=== PATIENT | male | born 1970 | race Caucasian/White ===

== ENCOUNTER 2017-03-25 07:50 | Inpatient (IN) | payer OTHER ==
[~2017-03-25] VITALS: Ht 175.3 cm; Wt 107.0 kg
[2017-03-25] VITALS (11 sets, daily range): BP systolic 135–156; BP diastolic 57–67; PULSE 71–99; RESP 14–28; TEMP 99.6–101; O2SAT 97–100
[2017-03-25] MEDS ORDERED: fentaNYL DRIP 250 ML IV PRN (08:00)
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
[2017-03-25 08:28] LABS: AUTOMATED NEUTROPHIL # 7.2 TH/MM3 (1.8-7.7); BASOPHIL % 0.3 % (0.0-2.0); EOSINOPHIL % 0.2 % (0.0-4.0); HEMATOCRIT 36.9 % (39.0-51.0); HEMOGLOBIN 12.8 GM/DL (13.0-17.0); LYMPH % 12.3 % (9.0-44.0); LYMPHOCYTE # 1.1 TH/MM3 (1.0-4.8); MEAN CELL VOLUME 91.2 FL (80.0-100.0); MEAN CORPUSCULAR HEMOGLOBIN 31.8 PG (27.0-34.0); MEAN CORPUSCULAR HGB CONC 34.8 % (32.0-36.0); MEAN PLATELET VOLUME 7.5 FL (7.0-11.0); MONO % 5.6 % (0.0-8.0); MONOCYTE # 0.5 TH/MM3 (0-0.9); NEUT % 81.6 % (16.0-70.0); PLATELET COUNT 280 TH/MM3 (150-450); RED BLOOD COUNT 4.04 MIL/MM3 (4.50-5.90); RED CELL DISTRIBUTION WIDTH 13.1 % (11.6-17.2); WHITE BLOOD COUNT 8.8 TH/MM3 (4.0-11.0)
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
[2017-03-25 08:46] LABS: ALBUMIN 3.6 GM/DL (3.4-5.0); ALT (GPT) 27 U/L (12-78); AST (GOT) 18 U/L (15-37); BICARBONATE 21.1 MEQ/L (21.0-32.0); BLOOD UREA NITROGEN 18 MG/DL (7-18); CALCIUM 7.7 MG/DL (8.5-10.1); CHLORIDE 94 MEQ/L (98-107); CREATININE 1.03 MG/DL (0.60-1.30); GLOMERULAR FILTRATION RATE 77 ML/MIN (>89); GLUCOSE,RANDOM 316 MG/DL (74-106); SODIUM (NA) 131 MEQ/L (136-145)
[2017-03-25 08:48] LABS: ALKALINE PHOSPHATASE 133 U/L (45-117); TOTAL BILIRUBIN ADULT 0.3 MG/DL (0.2-1.0); TOTAL PROTEIN 6.6 GM/DL (6.4-8.2)
[2017-03-25] MEDS ORDERED: LISI10TA3 PO (09:03)
[2017-03-25] MEDS ORDERED: PLAV75TA29 PO (09:03)
[2017-03-25] MEDS ORDERED: METF1000 PO (09:03)
[2017-03-25] MEDS ORDERED: ATOR10TA15 PO (09:04)
[2017-03-25] MEDS ORDERED: SODIUM CHLOR 0.9% 250 ML INJ 250 ML IV ONE (09:15)
[2017-03-25] MEDS: PROPOFOL 1000 MG/100 ML INJ 100 ML IV PRN (09:45)
[2017-03-25] MEDS: fentaNYL DRIP 250 ML IV PRN ×2 (09:45→22:07)
[2017-03-25] MEDS ORDERED: POTASSIUM PHOSPHATE MONOBASIC 500 MG TAB PO/TUBE PRN (10:00)
[2017-03-25] MEDS ORDERED: ONDANSETRON HCL 4 MG/2 ML VIAL IV PUSH PRN (10:00)
[2017-03-25] MEDS ORDERED: CHLORHEXIDINE GLUCONATE 2 % 1 PACK (2 CLOTHS) TOP PRN (10:00)
[2017-03-25] MEDS ORDERED: POTASSIUM PHOSPHATE MONOBASIC 500 MG TAB PO PRN (10:00)
[2017-03-25] MEDS ORDERED: MAGNESIUM HYDROXIDE SUSP 30 ML CUP PO PRN (10:00)
[2017-03-25] MEDS ORDERED: POTASSIUM CHLOR 40 MEQ PREMIX 100 ML IV PRN (10:00)
[2017-03-25] MEDS ORDERED: MAGNESIUM OXIDE 400 MG TAB PO PRN (10:00)
[2017-03-25] MEDS ORDERED: POTASSIUM CHLOR 20 MEQ PREMIX 100 ML IV PRN (10:00)
[2017-03-25] MEDS ORDERED: MAGNESIUM SULFATE INJ 2 GM in SODIUM CHLORIDE 0.9% INJ 96 ML IV PRN (10:00)
[2017-03-25] MEDS: SODIUM CHLOR 0.9% 1000 ML INJ 1,000 ML IV SCH ×2 (10:00→22:08)
[2017-03-25] MEDS ORDERED: MAGNESIUM SULFATE INJ 4 GM in SODIUM CHLORIDE 0.9% INJ 92 ML IV PRN (10:00)
[2017-03-25] MEDS ORDERED: MISCELLANEOUS NURSING INFORMATION XX SCH (10:00)
[2017-03-25] MEDS ORDERED: POTASSIUM PHOSPHATE INJ 30 MMOL in SODIUM CHLOR 0.9% 250 ML INJ 250 ML IV PRN (10:00)
[2017-03-25] MEDS ORDERED: SODIUM PHOSPHATE INJ 30 MMOL in SODIUM CHLOR 0.9% 250 ML INJ 240 ML IV PRN (10:00)
[2017-03-25] MEDS ORDERED: POTASSIUM CHLORIDE 20 MEQ PWD PACKET PO PRN (10:00)
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
[2017-03-25] MEDS: levETIRAcetam INJ 500 MG in SODIUM CHLORIDE 0.9% INJ 100 ML IV SCH ×2 (11:00→20:41)
[2017-03-25] MEDS: PANTOPRAZOLE SODIUM 40 MG VIAL IVP SCH (11:00)
--- NOTE | 2017-03-25 11:52 | PD.OP ---
Operative Report Date of Surgery: Mar 25, 2017 Preoperative Diagnosis: Severe traumatic brain injury Postoperative Diagnosis: Same Procedure: Right frontal twist drill hole ventriculostomy placement Anesthesia: Local with sedation Surgeon: Tripp Ríos M.D. Color Paste Mixing Supervisor(s): None Operation and Findings: Following continuation of Diprivan and fentanyl drips with the oxygen saturation and hemodynamic monitoring in the intensive care unit, the right frontal region was shaved and the prep with chlor prep and sterilely draped. Using landmarks of 11 cm behind the nasion and 3 cm to the right of the midline , a 1 cm scalp incision was made after infiltrating with 1% lidocaine with epinephrine solution. With a handheld drill a twist drill hole was made in the underlying dura penetrated with a blunt probe. The bactiseal ventriculostomy catheter was then passed into the lateral ventricle at a depth of 7 cm blood- tinged CSF encountered with an opening pressure around 10 cm H20. The distal end of the ventriculostomy was then tunneled under the scalp with a trocar and secured to the exit site with a 3-0 nylon thigh and connected to a drainage bag. Scalp incision site was approximated with 3-0 nylon interrupted stitches A sterile dressing was applied. There were no complications and blood loss was less than 5 cc. Tripp Ríos MD Mar 25, 2017 11:52
[2017-03-25] MEDS: INSULIN NovoLIN REGULAR SUPPLEMENTAL SCALE SQ SCH ×3 (12:00→21:00)
[2017-03-25] MEDS: 3% SALINE INJ 500 ML IV SCH ×2 (12:14→22:08)
[2017-03-25] MEDS ORDERED: DEXTROSE 50% IN WATER 50 ML VIAL(D50) IV PUSH PRN (12:30)
[2017-03-25] MEDS ORDERED: GLUCAGON 1 MG/ML VIAL OTHER PRN (12:30)
[2017-03-25] MEDS ORDERED: 3% SALINE INJ 500 ML IV ONE (12:30)
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
[2017-03-25] MEDS ORDERED: AMPICILLIN-SULBACTAM INJ 3 GM VIAL IM SCH (14:00)
[2017-03-25] MEDS: AMPICILLIN/SULBAC 3 GM/NS 100 ML IV SCH ×4 (14:00→20:00)
--- NOTE | 2017-03-25 14:03 | RADRPT ---
EXAM DATE/TIME: 03/25/2017 13:32 [place] COMPARISON: CHEST SINGLE AP, March 25, 2017, 8:16. INDICATIONS : Status post left sided central line placement. MEDICAL HISTORY : None. SURGICAL HISTORY : None. ENCOUNTER: Subsequent ACUITY: 1 day PAIN SCORE: Non-responsive. LOCATION: chest FINDINGS: Single AP view of the chest. Endotracheal tube and nasogastric tube remain in place. Left subclavian central venous catheter is now in place with the tip at the mid SVC. Mild patchy lower lung zone opac ity bilaterally. The lungs are clear. Cardiomediastinal silhouette within normal limits. No evidence of pleural effusion or pneumothorax. CONCLUSION: Left subclavian central venous catheter tip at mid SVC. No evidence of pneumothorax. Mild patchy bilateral lower lung zone opacity likely representing atelectasis. Gorge Phillip MD on March 25, 2017 at 14:00 Board Certified Radiologist. This report was verified electronically.
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
[2017-03-25] MEDS: POTASSIUM CHLOR 20 MEQ PREMIX 100 ML IV PRN (14:09)
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
[2017-03-25 15:43] LABS: MAGNESIUM 1.4 MG/DL (1.5-2.5); PHOSPHORUS 4.5 MG/DL (2.5-4.9)
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
[2017-03-25] MEDS: CHLORHEXIDINE 0.12% (ORAL KIT) 15 ML CUP MT SCH (20:00)
[2017-03-25] MEDS: DOCUSATE SODIUM 100 MG/10 ML UDC PO SCH (20:41)
[2017-03-26] VITALS (19 sets, daily range): BP systolic 135–172; BP diastolic 61–75; PULSE 64–124; RESP 14–21; TEMP 98.8–101; O2SAT 97–100
[2017-03-26] MEDS: SODIUM CHLOR 0.9% 1000 ML INJ 1,000 ML IV SCH ×3 (00:14→21:38)
[2017-03-26] MEDS: AMPICILLIN/SULBAC 3 GM/NS 100 ML IV SCH ×8 (01:58→19:59)
[2017-03-26] MEDS: PROPOFOL 1000 MG/100 ML INJ 100 ML IV PRN ×2 (01:58→12:30)
[2017-03-26] MEDS: CHLORHEXIDINE GLUCONATE 2 % 1 PACK (2 CLOTHS) TOP SCH (01:58)
[2017-03-26 04:57] LABS: AUTOMATED NEUTROPHIL # 7.5 TH/MM3 (1.8-7.7); BASOPHIL % 0.1 % (0.0-2.0); HEMATOCRIT 29.9 % (39.0-51.0); HEMOGLOBIN 10.4 GM/DL (13.0-17.0); LYMPH % 4.3 % (9.0-44.0); LYMPHOCYTE # 0.4 TH/MM3 (1.0-4.8); MEAN CELL VOLUME 91.5 FL (80.0-100.0); MEAN CORPUSCULAR HEMOGLOBIN 31.8 PG (27.0-34.0); MEAN CORPUSCULAR HGB CONC 34.8 % (32.0-36.0); MEAN PLATELET VOLUME 7.9 FL (7.0-11.0); MONO % 5.8 % (0.0-8.0); MONOCYTE # 0.5 TH/MM3 (0-0.9); NEUT % 89.8 % (16.0-70.0); PLATELET COUNT 209 TH/MM3 (150-450); RED BLOOD COUNT 3.27 MIL/MM3 (4.50-5.90); RED CELL DISTRIBUTION WIDTH 13.2 % (11.6-17.2); SODIUM (NA) 137 MEQ/L (136-145); WHITE BLOOD COUNT 8.4 TH/MM3 (4.0-11.0)
--- NOTE | 2017-03-26 05:00 | RADRPT ---
EXAM DATE/TIME: 03/26/2017 04:10 [facility] COMPARISON: CT BRAIN W/O CONTRAST, March 25, 2017, 9:32. INDICATIONS : Follow up subarachnoid hemorrhage; post ventricular drain placement. RADIATION DOSE: 67.37 CTDIvol (mGy) ; Tabletop CT Head MEDICAL HISTORY : Non-responsive. SURGICAL HISTORY : Craniotomy. ENCOUNTER: Subsequent ACUITY: 1 day PAIN SCALE: Non-responsive LOCATION: cranial TECHNIQUE: Multiple contiguous axial images were obtained of the head. Using automated exposure control and adj ustment of the mA and/or kV according to patient size, radiation dose was kept as low as reasonably a chievable to obtain optimal diagnostic quality images. DICOM format image data is available electro nically for review and comparison. FINDINGS: CEREBRUM: There is a right ventriculostomy tube in place with the tip seen in the frontal horn the right latera l ventricle. There is a small focus of air within the frontal horn of the right lateral ventricle. Ag ain noted is subarachnoid hemorrhage seen over the frontal lobes. There is subdural hemorrhages seen in the frontal regions bilaterally. There is hemorrhage seen in the corpus callosum. Intraventricular hemorrhage is seen in the lateral ventricles. There is a epidural hemorrhage seen at the left occipi katie region potentially related to a venous injury in this location. There is parenchymal hemorrhage i s seen in the inferior frontal lobes bilaterally the more proximal right. There is surrounding edema seen in the inferior frontal lobes. All these areas of hemorrhage are unchanged. The basal cisterns a re open. POSTERIOR FOSSA: The cerebellum and brainstem are intact. The 4th ventricle is midline. The cerebellopontine angle i s unremarkable. EXTRACRANIAL: There is increased density in the left maxillary sinus and the sphenoid sinuses bilaterally. There is scattered air is of increased density within the mastoid and temporal air cells bilaterally more pro minent on the left. SKULL: There are basal skull fractures through the sphenoid bone and sphenoid sinus. A small amount of air s een in the anterior aspect of the left middle cranial fossa. There is fracture at the anterior aspect of the left Hola temporal bone. There is widening of the left lambdoid suture. CONCLUSION: 1. Persistent areas of hemorrhage at the frontal lobes bilaterally, intraventricular hemorrhage and a posterior left epidural hemorrhage which are unchanged from the prior exam. 2. New ventriculostomy tube in place in the frontal horn the right lateral ventricle. 3. Multiple fractures including a basal skull fracture through the sphenoid bone. Rj Rondon MD on March 26, 2017 at 4:48 Board Certified Radiologist. This report was verified electronically.
[2017-03-26 05:41] LABS: PROTHROMBIN TIME - PATIENT 10.4 SEC (9.8-11.6)
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
[2017-03-26 07:58] LABS: ALBUMIN 2.9 GM/DL (3.4-5.0); ALKALINE PHOSPHATASE 100 U/L (45-117); ALT (GPT) 20 U/L (12-78); AST (GOT) 14 U/L (15-37); BICARBONATE 27.3 MEQ/L (21.0-32.0); BLOOD UREA NITROGEN 14 MG/DL (7-18); CALCIUM 7.8 MG/DL (8.5-10.1); CHLORIDE 103 MEQ/L (98-107); CREATININE 0.63 MG/DL (0.60-1.30); GLOMERULAR FILTRATION RATE 137 ML/MIN (>89); GLUCOSE,RANDOM 241 MG/DL (74-106); TOTAL BILIRUBIN ADULT 0.5 MG/DL (0.2-1.0); TOTAL PROTEIN 6.2 GM/DL (6.4-8.2)
[2017-03-26] MEDS: CHLORHEXIDINE 0.12% (ORAL KIT) 15 ML CUP MT SCH ×2 (08:00→19:51)
[2017-03-26] MEDS: INSULIN NovoLIN REGULAR SUPPLEMENTAL SCALE SQ SCH ×4 (08:12→20:17)
[2017-03-26] MEDS: DOCUSATE SODIUM 100 MG/10 ML UDC PO SCH (08:13)
[2017-03-26] MEDS ORDERED: PNEUMOCOCCAL POLYVALENT INJ 25 MCG/0.5 ML SYR IM ONE (10:00)
[2017-03-26] MEDS ORDERED: INFLUENZA VIRUS VACCINE (QUADRIVALENT) 0.5 ML SYR IM ONE (10:00)
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
[2017-03-26] MEDS: PANTOPRAZOLE SODIUM 40 MG VIAL IVP SCH (10:56)
[2017-03-26] MEDS: levETIRAcetam INJ 500 MG in SODIUM CHLORIDE 0.9% INJ 100 ML IV SCH ×2 (10:56→19:59)
[2017-03-26] MEDS: hydrALAZINE HCL 20 MG/ML VIAL IV PUSH SCH ×3 (11:17→22:50)
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
[2017-03-26] MEDS: ENALAPRILAT 1.25 MG/ML VIAL IV PUSH PRN (11:54)
[2017-03-26] MEDS: cloNIDine HCL 0.1 MG/24 HR PATCH T-DERMAL SCH (12:00)
[2017-03-26] MEDS ORDERED: BISACODYL 10 MG SUPP RECTAL PRN (12:15)
--- NOTE | 2017-03-26 12:28 | EKG ---
Date Performed: 03/25/2017 Time Performed: 08:50:46 PTAGE: 46 years EKG: SINUS TACHYCARDIA INFERIOR MYOCARDIAL INFARCTION Clinical correlation is recommended ABNORM AL ECG NO PREVIOUS TRACING DOCTOR: Nigel Petit Interpretating Date/Time 03/26/2017 12:24:58
[2017-03-26] MEDS: fentaNYL DRIP 250 ML IV PRN (12:30)
[2017-03-26] MEDS: LACTULOSE SYRUP 20 GM/30 ML CUP PO SCH (13:00)
[2017-03-26] MEDS: 3% SALINE INJ 500 ML IV SCH (16:00)
[2017-03-26] MEDS: DOCUSATE SODIUM 50 MG/SENNA 8.6 MG TAB PO SCH (19:59)
[2017-03-27] VITALS (18 sets, daily range): BP systolic 123–166; BP diastolic 57–66; PULSE 87–108; RESP 17–20; TEMP 98.7–99.4; O2SAT 93–99
[2017-03-27] MEDS: ENALAPRILAT 1.25 MG/ML VIAL IV PUSH PRN (00:36)
[2017-03-27] MEDS: fentaNYL DRIP 250 ML IV PRN ×2 (00:39→12:53)
[2017-03-27] MEDS: PROPOFOL 1000 MG/100 ML INJ 100 ML IV PRN ×4 (00:43→18:15)
[2017-03-27] MEDS: CHLORHEXIDINE GLUCONATE 2 % 1 PACK (2 CLOTHS) TOP SCH (01:40)
[2017-03-27] MEDS: AMPICILLIN/SULBAC 3 GM/NS 100 ML IV SCH ×8 (02:08→20:37)
[2017-03-27] MEDS: 3% SALINE INJ 500 ML IV SCH ×2 (03:32→20:37)
[2017-03-27] MEDS: hydrALAZINE HCL 20 MG/ML VIAL IV PUSH SCH ×4 (05:23→23:59)
[2017-03-27 05:36] LABS: AUTOMATED NEUTROPHIL # 4.9 TH/MM3 (1.8-7.7); BASOPHIL % 0.1 % (0.0-2.0); EOSINOPHIL % 0.1 % (0.0-4.0); HEMATOCRIT 28.5 % (39.0-51.0); HEMOGLOBIN 9.9 GM/DL (13.0-17.0); LYMPH % 9.3 % (9.0-44.0); LYMPHOCYTE # 0.6 TH/MM3 (1.0-4.8); MEAN CELL VOLUME 91.4 FL (80.0-100.0); MEAN CORPUSCULAR HEMOGLOBIN 31.7 PG (27.0-34.0); MEAN CORPUSCULAR HGB CONC 34.7 % (32.0-36.0); MEAN PLATELET VOLUME 8.3 FL (7.0-11.0); MONO % 8.1 % (0.0-8.0); MONOCYTE # 0.5 TH/MM3 (0-0.9); NEUT % 82.4 % (16.0-70.0); PLATELET COUNT 184 TH/MM3 (150-450); RED BLOOD COUNT 3.12 MIL/MM3 (4.50-5.90); RED CELL DISTRIBUTION WIDTH 13.4 % (11.6-17.2)
[2017-03-27 05:44] LABS: PROTHROMBIN TIME - PATIENT 9.9 SEC (9.8-11.6)
[2017-03-27 05:56] LABS: CALCIUM 7.9 MG/DL (8.5-10.1); CREATININE 0.71 MG/DL (0.60-1.30)
[2017-03-27] MEDS: POTASSIUM CHLOR 40 MEQ PREMIX 100 ML IV PRN (07:08)
[2017-03-27] MEDS ORDERED: niCARdipine INJ 25 MG in SODIUM CHLOR 0.9% 250 ML INJ 240 ML IV PRN (08:00)
[2017-03-27] MEDS: INSULIN NovoLIN REGULAR SUPPLEMENTAL SCALE SQ SCH ×4 (08:00→20:38)
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
[2017-03-27] MEDS: DOCUSATE SODIUM 50 MG/SENNA 8.6 MG TAB PO SCH ×2 (09:32→20:37)
[2017-03-27] MEDS: CHLORHEXIDINE 0.12% (ORAL KIT) 15 ML CUP MT SCH ×2 (09:32→20:38)
[2017-03-27] MEDS: LACTULOSE SYRUP 20 GM/30 ML CUP PO SCH (09:32)
[2017-03-27] MEDS: PANTOPRAZOLE SODIUM 40 MG VIAL IVP SCH (10:48)
[2017-03-27] MEDS ORDERED: NICARDIPINE IV PRN (11:45)
[2017-03-27] MEDS ORDERED: SODIUM CHLORID 0.9% IV PRN (11:45)
[2017-03-27] MEDS: levETIRAcetam INJ 500 MG in SODIUM CHLORIDE 0.9% INJ 100 ML IV SCH ×2 (12:46→20:38)
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
[2017-03-27] MEDS: niCARdipine INJ 50 MG in SODIUM CHLORID 0.9% 500 ML INJ 480 ML IV PRN ×2 (17:05→21:08)
[2017-03-28] VITALS (18 sets, daily range): BP systolic 134–143; BP diastolic 52–65; PULSE 77–102; RESP 14–20; TEMP 98.5–99.8; O2SAT 95–100
[2017-03-28] MEDS: AMPICILLIN/SULBAC 3 GM/NS 100 ML IV SCH ×8 (01:25→21:04)
[2017-03-28] MEDS: fentaNYL DRIP 250 ML IV PRN (01:25)
[2017-03-28] MEDS: PROPOFOL 1000 MG/100 ML INJ 100 ML IV PRN ×3 (01:26→14:20)
[2017-03-28] MEDS: CHLORHEXIDINE GLUCONATE 2 % 1 PACK (2 CLOTHS) TOP SCH (02:44)
[2017-03-28 05:15] LABS: AUTOMATED NEUTROPHIL # 4.4 TH/MM3 (1.8-7.7); BASOPHIL % 0.4 % (0.0-2.0); EOSINOPHIL # 0.1 TH/MM3 (0-0.4); EOSINOPHIL % 1.4 % (0.0-4.0); HEMATOCRIT 30.2 % (39.0-51.0); HEMOGLOBIN 10.3 GM/DL (13.0-17.0); LYMPH % 7.2 % (9.0-44.0); LYMPHOCYTE # 0.4 TH/MM3 (1.0-4.8); MEAN CELL VOLUME 94.2 FL (80.0-100.0); MEAN CORPUSCULAR HEMOGLOBIN 32.1 PG (27.0-34.0); MONOCYTE # 0.3 TH/MM3 (0-0.9); PLATELET COUNT 197 TH/MM3 (150-450); RED BLOOD COUNT 3.21 MIL/MM3 (4.50-5.90); RED CELL DISTRIBUTION WIDTH 13.6 % (11.6-17.2); WHITE BLOOD COUNT 5.2 TH/MM3 (4.0-11.0)
[2017-03-28] MEDS: hydrALAZINE HCL 20 MG/ML VIAL IV PUSH SCH ×3 (05:31→17:41)
[2017-03-28 05:35] LABS: CALCIUM 7.9 MG/DL (8.5-10.1); CREATININE 0.68 MG/DL (0.60-1.30)
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
[2017-03-28] MEDS: LACTULOSE SYRUP 20 GM/30 ML CUP PO SCH (08:39)
[2017-03-28] MEDS: DOCUSATE SODIUM 50 MG/SENNA 8.6 MG TAB PO SCH ×2 (08:39→21:00)
[2017-03-28] MEDS: levETIRAcetam INJ 500 MG in SODIUM CHLORIDE 0.9% INJ 100 ML IV SCH ×2 (08:40→21:04)
[2017-03-28] MEDS: INSULIN NovoLIN REGULAR SUPPLEMENTAL SCALE SQ SCH ×3 (08:40→17:41)
[2017-03-28] MEDS: CHLORHEXIDINE 0.12% (ORAL KIT) 15 ML CUP MT SCH ×2 (08:40→21:05)
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
[2017-03-28] MEDS: ENALAPRILAT 1.25 MG/ML VIAL IV PUSH PRN (10:09)
--- NOTE | 2017-03-28 10:12 | MP ---
cc: SONG ECHOLS MD DATE OF SURGERY 03/25/2017 PREOPERATIVE DIAGNOSES Massive head trauma and brain hemorrhage. Respiratory failure. POSTOPERATIVE DIAGNOSES Massive head trauma and brain hemorrhage. Respiratory failure. PROCEDURE Triple-lumen placed in the left subclavian. SURGEON MD Candida ANESTHESIA 1% Xylocaine. ESTIMATED BLOOD LOSS Minimal. PROCEDURE The patient was prepped and draped in the usual fashion. The area was infiltrated with 1% Xylocaine, the needle inserted into the left subclavian vein. Through the needle the J-wire was guided, the J-wire dilated, triple-lumen placed, the triple lumen sutured in place with 2-0 silk and chest x-ray obtained. Song Echols SJ/SSB /3:42 PM /10:05 AM
[2017-03-28] MEDS: niCARdipine INJ 50 MG in SODIUM CHLORID 0.9% 500 ML INJ 480 ML IV PRN ×2 (10:55→17:41)
[2017-03-28] MEDS: PANTOPRAZOLE SODIUM 40 MG VIAL IVP SCH (11:01)
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
[2017-03-28] MEDS ORDERED: DEXTROSE 50% IN WATER 50 ML VIAL(D50) IV PUSH PRN (18:30)
[2017-03-28] MEDS ORDERED: GLUCAGON 1 MG/ML VIAL OTHER PRN (18:30)
[2017-03-28] MEDS ORDERED: PLEASE DISCONTINUE PREVIOUS SUPPLEMENTAL SCALE INSULIN ORDERS ONE (18:30)
[2017-03-28] MEDS: HIGH DOSE INSULIN NOVOLIN REGULAR SUPPLEMENTAL SCALE SQ SCH (19:56)
[2017-03-28 21:44] LABS: MAGNESIUM 2.5 MG/DL (1.5-2.5)
[2017-03-29] VITALS (19 sets, daily range): BP systolic 140–164; BP diastolic 52–65; PULSE 85–117; RESP 16–19; TEMP 98.7–99.9; O2SAT 94–97
[2017-03-29] MEDS: hydrALAZINE HCL 20 MG/ML VIAL IV PUSH SCH ×4 (01:41→17:20)
[2017-03-29] MEDS: AMPICILLIN/SULBAC 3 GM/NS 100 ML IV SCH ×8 (01:47→20:13)
[2017-03-29] MEDS: HIGH DOSE INSULIN NOVOLIN REGULAR SUPPLEMENTAL SCALE SQ SCH ×4 (01:47→17:20)
[2017-03-29] MEDS: CHLORHEXIDINE GLUCONATE 2 % 1 PACK (2 CLOTHS) TOP SCH (02:43)
[2017-03-29] MEDS: PROPOFOL 1000 MG/100 ML INJ 100 ML IV PRN ×2 (05:16)
[2017-03-29 06:27] LABS: AUTOMATED NEUTROPHIL # 4.9 TH/MM3 (1.8-7.7); BASOPHIL % 0.4 % (0.0-2.0); EOSINOPHIL # 0.2 TH/MM3 (0-0.4); EOSINOPHIL % 2.6 % (0.0-4.0); HEMATOCRIT 30.1 % (39.0-51.0); HEMOGLOBIN 10.3 GM/DL (13.0-17.0); LYMPH % 8.3 % (9.0-44.0); LYMPHOCYTE # 0.5 TH/MM3 (1.0-4.8); MEAN CELL VOLUME 95.2 FL (80.0-100.0); MEAN CORPUSCULAR HEMOGLOBIN 32.5 PG (27.0-34.0); MEAN CORPUSCULAR HGB CONC 34.2 % (32.0-36.0); MEAN PLATELET VOLUME 7.7 FL (7.0-11.0); MONOCYTE # 0.4 TH/MM3 (0-0.9); NEUT % 82.7 % (16.0-70.0); PLATELET COUNT 195 TH/MM3 (150-450); RED BLOOD COUNT 3.16 MIL/MM3 (4.50-5.90); RED CELL DISTRIBUTION WIDTH 13.7 % (11.6-17.2); WHITE BLOOD COUNT 5.9 TH/MM3 (4.0-11.0)
--- NOTE | 2017-03-29 06:33 | RADRPT ---
EXAM DATE/TIME: 03/29/2017 05:30 [facility] COMPARISON: CHEST SINGLE AP, March 26, 2017, 4:24. INDICATIONS : Shortness of breath. MEDICAL HISTORY : None. SURGICAL HISTORY : None. ENCOUNTER: Subsequent ACUITY: 3 days PAIN SCORE: Non-responsive. LOCATION: Bilateral chest FINDINGS: A single view of the chest demonstrates endotracheal tube in good position. Left central line in supe rior vena cava. Nasogastric tube enters stomach. Mild basilar airspace disease without significant ef fusion. No pneumothorax. Heart size enlarged. CONCLUSION: 1. Mild basilar airspace disease similar to March 26. No effusion or pneumothorax. Support apparatu s in good position. Magdy Shelley MD on March 29, 2017 at 6:28 Board Certified Radiologist. This report was verified electronically.
[2017-03-29 06:44] LABS: BICARBONATE 25.4 MEQ/L (21.0-32.0); CALCIUM 7.9 MG/DL (8.5-10.1); CREATININE 0.77 MG/DL (0.60-1.30)
[2017-03-29] MEDS: ENALAPRILAT 1.25 MG/ML VIAL IV PUSH PRN (07:40)
[2017-03-29] MEDS: CHLORHEXIDINE 0.12% (ORAL KIT) 15 ML CUP MT SCH ×2 (07:58→20:12)
[2017-03-29] MEDS: LACTULOSE SYRUP 20 GM/30 ML CUP PO SCH (07:58)
[2017-03-29] MEDS: DOCUSATE SODIUM 50 MG/SENNA 8.6 MG TAB PO SCH ×2 (07:58→20:12)
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
[2017-03-29] MEDS: levETIRAcetam INJ 500 MG in SODIUM CHLORIDE 0.9% INJ 100 ML IV SCH ×2 (08:37→20:13)
[2017-03-29] MEDS: niCARdipine INJ 50 MG in SODIUM CHLORID 0.9% 500 ML INJ 480 ML IV PRN ×3 (08:38→23:04)
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
[2017-03-29] MEDS: POTASSIUM CHLOR 40 MEQ PREMIX 100 ML IV PRN (09:52)
[2017-03-29] MEDS ORDERED: HALOPERIDOL LACTATE 5 MG/ML AMP IV PRN (10:30)
[2017-03-29] MEDS: PANTOPRAZOLE SODIUM 40 MG VIAL IVP SCH (10:30)
[2017-03-29] MEDS: METOPROLOL TARTRATE 5 MG/5 ML VIAL IV PUSH SCH ×3 (10:31→22:26)
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
[2017-03-29] MEDS: SODIUM CHLORIDE 0.9% FLUSH 10 ML FLUSH IV FLUSH PRN (22:26)
[2017-03-30] VITALS (18 sets, daily range): BP systolic 54–169; BP diastolic 52–65; PULSE 64–103; RESP 15–22; TEMP 98.8–99.6; O2SAT 93–98
[2017-03-30] MEDS: hydrALAZINE HCL 20 MG/ML VIAL IV PUSH SCH ×4 (00:58→17:34)
[2017-03-30] MEDS: HIGH DOSE INSULIN NOVOLIN REGULAR SUPPLEMENTAL SCALE SQ SCH ×4 (00:59→17:33)
[2017-03-30] MEDS: fentaNYL DRIP 250 ML IV PRN ×2 (01:59→23:40)
[2017-03-30] MEDS: AMPICILLIN/SULBAC 3 GM/NS 100 ML IV SCH ×8 (01:59→21:20)
[2017-03-30] MEDS: niCARdipine INJ 50 MG in SODIUM CHLORID 0.9% 500 ML INJ 480 ML IV PRN ×2 (03:09→07:31)
[2017-03-30] MEDS: CHLORHEXIDINE GLUCONATE 2 % 1 PACK (2 CLOTHS) TOP SCH (04:00)
[2017-03-30] MEDS: METOPROLOL TARTRATE 5 MG/5 ML VIAL IV PUSH SCH ×2 (04:55→09:15)
[2017-03-30 05:11] LABS: AUTOMATED NEUTROPHIL # 4.2 TH/MM3 (1.8-7.7); BASOPHIL % 0.3 % (0.0-2.0); EOSINOPHIL # 0.1 TH/MM3 (0-0.4); EOSINOPHIL % 2.7 % (0.0-4.0); HEMATOCRIT 31.2 % (39.0-51.0); HEMOGLOBIN 10.3 GM/DL (13.0-17.0); LYMPH % 12.9 % (9.0-44.0); LYMPHOCYTE # 0.7 TH/MM3 (1.0-4.8); MEAN CELL VOLUME 95.1 FL (80.0-100.0); MEAN CORPUSCULAR HEMOGLOBIN 31.5 PG (27.0-34.0); MEAN CORPUSCULAR HGB CONC 33.2 % (32.0-36.0); MEAN PLATELET VOLUME 7.8 FL (7.0-11.0); MONO % 6.5 % (0.0-8.0); MONOCYTE # 0.4 TH/MM3 (0-0.9); NEUT % 77.6 % (16.0-70.0); PLATELET COUNT 187 TH/MM3 (150-450); RED BLOOD COUNT 3.28 MIL/MM3 (4.50-5.90); WHITE BLOOD COUNT 5.5 TH/MM3 (4.0-11.0)
[2017-03-30 05:32] LABS: ALBUMIN 2.2 GM/DL (3.4-5.0); AST (GOT) 8 U/L (15-37); BICARBONATE 26.6 MEQ/L (21.0-32.0); BLOOD UREA NITROGEN 23 MG/DL (7-18); CALCIUM 8.6 MG/DL (8.5-10.1); CHLORIDE 120 MEQ/L (98-107); CREATININE 0.79 MG/DL (0.60-1.30); GLOMERULAR FILTRATION RATE 105 ML/MIN (>89); GLUCOSE,RANDOM 292 MG/DL (74-106); SODIUM (NA) 153 MEQ/L (136-145)
[2017-03-30 05:33] LABS: ALT (GPT) 13 U/L (12-78)
[2017-03-30 05:35] LABS: ALKALINE PHOSPHATASE 105 U/L (45-117); TOTAL BILIRUBIN ADULT 0.3 MG/DL (0.2-1.0)
--- NOTE | 2017-03-30 06:28 | RADRPT ---
EXAM DATE/TIME: 03/30/2017 05:19 [place] COMPARISON: CHEST SINGLE AP, March 29, 2017, 5:30. INDICATIONS : Shortness of breath MEDICAL HISTORY : None. SURGICAL HISTORY : None. ENCOUNTER: Subsequent ACUITY: 4 - 6 days PAIN SCORE: Non-responsive. LOCATION: Bilateral chest FINDINGS: A single view of the chest demonstrates endotracheal tube in good position. NG enters stomach. A cent ral line in superior vena cava. Bilateral mostly basilar airspace disease similar to March 29 and w orse on the right side. No pneumothorax. CONCLUSION: 1. Support apparatus unchanged. Bilateral airspace disease, right greater than left. Magdy Shelley MD on March 30, 2017 at 6:24 Board Certified Radiologist. This report was verified electronically.
[2017-03-30] MEDS: ENALAPRILAT 1.25 MG/ML VIAL IV PUSH PRN (07:07)
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
[2017-03-30] MEDS: levETIRAcetam INJ 500 MG in SODIUM CHLORIDE 0.9% INJ 100 ML IV SCH ×2 (08:52→21:21)
[2017-03-30] MEDS: DOCUSATE SODIUM 50 MG/SENNA 8.6 MG TAB PO SCH ×2 (08:53→21:21)
[2017-03-30] MEDS: LACTULOSE SYRUP 20 GM/30 ML CUP PO SCH (08:53)
[2017-03-30] MEDS: CHLORHEXIDINE 0.12% (ORAL KIT) 15 ML CUP MT SCH ×2 (08:54→20:00)
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
[2017-03-30] MEDS ORDERED: LABETALOL HCL 100 MG/20 ML VIAL IV PUSH ONE (09:15)
[2017-03-30] MEDS: INSULIN DETEMIR 100 UNITS/ML VIAL SQ SCH ×2 (10:00→21:20)
[2017-03-30] MEDS: PANTOPRAZOLE SODIUM 40 MG VIAL IVP SCH (10:52)
[2017-03-30] MEDS: FUROSEMIDE 20 MG/2 ML VIAL IV PUSH SCH (11:01)
[2017-03-30] MEDS: POTASSIUM CHLORIDE 25 MEQ EFFERVESCENT TAB NG SCH (11:02)
[2017-03-30] MEDS: LABETALOL INJ 500 MG in SODIUM CHLORIDE 0.9% INJ 150 ML IV PRN ×2 (11:02→15:49)
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
[2017-03-30] MEDS ORDERED: DEXTROSE 50% IN WATER 50 ML VIAL(D50) IV PUSH PRN (22:00)
[2017-03-30] MEDS ORDERED: GLUCAGON 1 MG/ML VIAL OTHER PRN (22:00)
[2017-03-31] VITALS (20 sets, daily range): BP systolic 122–169; BP diastolic 48–65; PULSE 55–68; RESP 14–22; TEMP 98.3–100.5; O2SAT 96–100
[2017-03-31] MEDS: hydrALAZINE HCL 20 MG/ML VIAL IV PUSH SCH ×4 (00:02→17:17)
[2017-03-31] MEDS: HIGH DOSE INSULIN NOVOLIN REGULAR SUPPLEMENTAL SCALE SQ SCH ×6 (00:27→20:00)
[2017-03-31] MEDS: AMPICILLIN/SULBAC 3 GM/NS 100 ML IV SCH ×8 (02:05→20:09)
[2017-03-31] MEDS: CHLORHEXIDINE GLUCONATE 2 % 1 PACK (2 CLOTHS) TOP SCH (03:48)
[2017-03-31 03:58] LABS: AUTOMATED NEUTROPHIL # 3.4 TH/MM3 (1.8-7.7); BASOPHIL % 0.5 % (0.0-2.0); EOSINOPHIL # 0.1 TH/MM3 (0-0.4); EOSINOPHIL % 2.9 % (0.0-4.0); HEMATOCRIT 28.6 % (39.0-51.0); HEMOGLOBIN 9.4 GM/DL (13.0-17.0); LYMPH % 18.4 % (9.0-44.0); LYMPHOCYTE # 0.9 TH/MM3 (1.0-4.8); MEAN CELL VOLUME 95.3 FL (80.0-100.0); MEAN CORPUSCULAR HEMOGLOBIN 31.5 PG (27.0-34.0); MONO % 7.2 % (0.0-8.0); MONOCYTE # 0.3 TH/MM3 (0-0.9); PLATELET COUNT 177 TH/MM3 (150-450); RED CELL DISTRIBUTION WIDTH 13.7 % (11.6-17.2); WHITE BLOOD COUNT 4.8 TH/MM3 (4.0-11.0)
[2017-03-31 04:22] LABS: ALBUMIN 2.1 GM/DL (3.4-5.0); AST (GOT) 8 U/L (15-37); BICARBONATE 27.4 MEQ/L (21.0-32.0); BLOOD UREA NITROGEN 31 MG/DL (7-18); CALCIUM 8.5 MG/DL (8.5-10.1); CHLORIDE 121 MEQ/L (98-107); CREATININE 0.89 MG/DL (0.60-1.30); GLOMERULAR FILTRATION RATE 92 ML/MIN (>89); GLUCOSE,RANDOM 281 MG/DL (74-106); SODIUM (NA) 155 MEQ/L (136-145)
[2017-03-31 04:23] LABS: ALT (GPT) 17 U/L (12-78)
[2017-03-31 04:25] LABS: ALKALINE PHOSPHATASE 97 U/L (45-117); TOTAL BILIRUBIN ADULT 0.2 MG/DL (0.2-1.0); TOTAL PROTEIN 5.8 GM/DL (6.4-8.2)
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
--- NOTE | 2017-03-31 05:11 | RADRPT ---
EXAM DATE/TIME: 03/31/2017 04:49 [facility] COMPARISON: CHEST SINGLE AP, March 30, 2017, 5:19. INDICATIONS : Respiratory disease. MEDICAL HISTORY : None. SURGICAL HISTORY : None. ENCOUNTER: Subsequent ACUITY: 1 week PAIN SCORE: Non-responsive. LOCATION: Bilateral chest FINDINGS: There is patchy airspace disease on the right, not significant changed. Endotracheal tube, enteric tu be and EKG leads are again noted. Degenerative changes of the spine are present. CONCLUSION: No significant change has occurred. Wing Mckeon MD on March 31, 2017 at 5:08 Board Certified Radiologist. This report was verified electronically.
[2017-03-31] MEDS: LABETALOL INJ 500 MG in SODIUM CHLORIDE 0.9% INJ 150 ML IV PRN (06:47)
[2017-03-31] MEDS: CHLORHEXIDINE 0.12% (ORAL KIT) 15 ML CUP MT SCH ×2 (08:00→20:00)
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
[2017-03-31] MEDS: LACTULOSE SYRUP 20 GM/30 ML CUP PO SCH (09:00)
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
[2017-03-31] MEDS: INSULIN DETEMIR 100 UNITS/ML VIAL SQ SCH ×2 (10:17→20:10)
[2017-03-31] MEDS: POTASSIUM CHLORIDE 25 MEQ EFFERVESCENT TAB NG SCH (10:17)
[2017-03-31] MEDS: PANTOPRAZOLE SODIUM 40 MG VIAL IVP SCH (10:19)
[2017-03-31] MEDS: levETIRAcetam INJ 500 MG in SODIUM CHLORIDE 0.9% INJ 100 ML IV SCH ×2 (10:20→20:10)
[2017-03-31] MEDS: FUROSEMIDE 20 MG/2 ML VIAL IV PUSH SCH (10:20)
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
[2017-03-31] MEDS: DOCUSATE SODIUM 50 MG/SENNA 8.6 MG TAB PO SCH ×2 (11:41→20:10)
[2017-03-31] MEDS ORDERED: LIDOCAINE 2%/EPINEPHrine 1:100,000 20ML MDV INFIL ONE (14:00)
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
[2017-03-31] MEDS: ENOXAPARIN SODIUM 40 MG/0.4 ML SYRINGE SQ SCH (17:17)
[2017-04-01] VITALS (15 sets, daily range): BP systolic 116–171; BP diastolic 52–72; PULSE 54–92; RESP 14–15; TEMP 98.4–100.6; O2SAT 94–100
[2017-04-01] MEDS: hydrALAZINE HCL 20 MG/ML VIAL IV PUSH SCH ×4 (00:45→17:58)
[2017-04-01] MEDS: AMPICILLIN/SULBAC 3 GM/NS 100 ML IV SCH ×8 (02:29→21:10)
[2017-04-01] MEDS: CHLORHEXIDINE GLUCONATE 2 % 1 PACK (2 CLOTHS) TOP SCH (04:00)
[2017-04-01] MEDS: HIGH DOSE INSULIN NOVOLIN REGULAR SUPPLEMENTAL SCALE SQ SCH ×6 (04:00→20:00)
[2017-04-01 04:42] LABS: AUTOMATED NEUTROPHIL # 3.1 TH/MM3 (1.8-7.7); EOSINOPHIL # 0.2 TH/MM3 (0-0.4); EOSINOPHIL % 4.2 % (0.0-4.0); HEMATOCRIT 28.5 % (39.0-51.0); HEMOGLOBIN 9.4 GM/DL (13.0-17.0); LYMPH % 24.5 % (9.0-44.0); LYMPHOCYTE # 1.2 TH/MM3 (1.0-4.8); MEAN CELL VOLUME 96.7 FL (80.0-100.0); MEAN CORPUSCULAR HEMOGLOBIN 31.9 PG (27.0-34.0); MEAN CORPUSCULAR HGB CONC 32.9 % (32.0-36.0); MEAN PLATELET VOLUME 8.5 FL (7.0-11.0); MONO % 7.4 % (0.0-8.0); MONOCYTE # 0.4 TH/MM3 (0-0.9); NEUT % 62.9 % (16.0-70.0); PLATELET COUNT 186 TH/MM3 (150-450); RED BLOOD COUNT 2.95 MIL/MM3 (4.50-5.90); RED CELL DISTRIBUTION WIDTH 13.8 % (11.6-17.2); WHITE BLOOD COUNT 4.9 TH/MM3 (4.0-11.0)
[2017-04-01 05:15] LABS: ALBUMIN 2.1 GM/DL (3.4-5.0); ALKALINE PHOSPHATASE 95 U/L (45-117); ALT (GPT) 18 U/L (12-78); AST (GOT) 10 U/L (15-37); BICARBONATE 28.6 MEQ/L (21.0-32.0); BLOOD UREA NITROGEN 35 MG/DL (7-18); CALCIUM 8.7 MG/DL (8.5-10.1); CHLORIDE 120 MEQ/L (98-107); CREATININE 0.95 MG/DL (0.60-1.30); GLOMERULAR FILTRATION RATE 85 ML/MIN (>89); GLUCOSE,RANDOM 284 MG/DL (74-106); TOTAL BILIRUBIN ADULT 0.2 MG/DL (0.2-1.0); TOTAL PROTEIN 5.7 GM/DL (6.4-8.2)
--- NOTE | 2017-04-01 05:16 | RADRPT ---
EXAM DATE/TIME: 04/01/2017 04:12 [facility] COMPARISON: CHEST SINGLE AP, March 31, 2017, 4:49. INDICATIONS : Respiratory disease. MEDICAL HISTORY : None. SURGICAL HISTORY : None. ENCOUNTER: Subsequent ACUITY: 1 week PAIN SCORE: Non-responsive. LOCATION: Bilateral chest FINDINGS: Cardiomegaly, endotracheal tube, enteric tube again noted. Improved aeration. A few scattered patchy parenchymal infiltrates remain bilaterally. CONCLUSION: Improved aeration. Wing Mckeon MD on April 01, 2017 at 5:13 Board Certified Radiologist. This report was verified electronically.
[2017-04-01 05:20] LABS: SODIUM (NA) 156 MEQ/L (136-145)
[2017-04-01] MEDS: RESP: ALBUTEROL 2.5 MG/IPRATROPIUM 0.5 MG NEB (PRN) NEB ×3 (06:47→21:09)
[2017-04-01] MEDS: CHLORHEXIDINE 0.12% (ORAL KIT) 15 ML CUP MT SCH ×2 (08:00→20:00)
[2017-04-01] MEDS: POTASSIUM CHLORIDE 25 MEQ EFFERVESCENT TAB NG SCH (09:00)
[2017-04-01] MEDS: FUROSEMIDE 20 MG/2 ML VIAL IV PUSH SCH (09:28)
[2017-04-01] MEDS: LACTULOSE SYRUP 20 GM/30 ML CUP PO SCH (09:28)
[2017-04-01] MEDS: levETIRAcetam INJ 500 MG in SODIUM CHLORIDE 0.9% INJ 100 ML IV SCH ×2 (09:29→21:09)
[2017-04-01] MEDS: LISINOPRIL 10 MG TAB PO SCH ×2 (09:30→21:09)
[2017-04-01] MEDS: DOCUSATE SODIUM 50 MG/SENNA 8.6 MG TAB PO SCH ×2 (09:31→21:09)
[2017-04-01] MEDS: PANTOPRAZOLE SODIUM 40 MG VIAL IVP SCH (09:38)
[2017-04-01] MEDS: FREE WATER G-TUBE SCH ×2 (10:20→17:58)
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
[2017-04-01] MEDS: ENOXAPARIN SODIUM 40 MG/0.4 ML SYRINGE SQ SCH (14:56)
[2017-04-01] MEDS: fentaNYL DRIP 250 ML IV PRN (14:56)
[2017-04-01] MEDS: INSULIN DETEMIR 100 UNITS/ML VIAL SQ SCH (21:08)
[2017-04-02] VITALS (18 sets, daily range): BP systolic 130–167; BP diastolic 62–79; PULSE 64–94; RESP 13–21; TEMP 98.8–99.6; O2SAT 96–100
[2017-04-02] MEDS: hydrALAZINE HCL 20 MG/ML VIAL IV PUSH SCH ×4 (00:29→16:47)
[2017-04-02] MEDS: AMPICILLIN/SULBAC 3 GM/NS 100 ML IV SCH ×8 (02:16→21:31)
[2017-04-02] MEDS: CHLORHEXIDINE GLUCONATE 2 % 1 PACK (2 CLOTHS) TOP SCH (04:00)
[2017-04-02] MEDS: HIGH DOSE INSULIN NOVOLIN REGULAR SUPPLEMENTAL SCALE SQ SCH ×6 (04:00→21:53)
[2017-04-02] MEDS: RESP: ALBUTEROL 2.5 MG/IPRATROPIUM 0.5 MG NEB (PRN) NEB ×3 (04:18→17:22)
[2017-04-02 04:30] LABS: AUTOMATED NEUTROPHIL # 4.6 TH/MM3 (1.8-7.7); BASOPHIL % 0.6 % (0.0-2.0); EOSINOPHIL # 0.2 TH/MM3 (0-0.4); EOSINOPHIL % 3.2 % (0.0-4.0); HEMATOCRIT 30.4 % (39.0-51.0); LYMPH % 16.8 % (9.0-44.0); LYMPHOCYTE # 1.1 TH/MM3 (1.0-4.8); MEAN CELL VOLUME 96.2 FL (80.0-100.0); MEAN CORPUSCULAR HEMOGLOBIN 31.5 PG (27.0-34.0); MEAN CORPUSCULAR HGB CONC 32.8 % (32.0-36.0); MEAN PLATELET VOLUME 8.3 FL (7.0-11.0); MONOCYTE # 0.4 TH/MM3 (0-0.9); NEUT % 72.4 % (16.0-70.0); PLATELET COUNT 209 TH/MM3 (150-450); RED BLOOD COUNT 3.16 MIL/MM3 (4.50-5.90); RED CELL DISTRIBUTION WIDTH 13.5 % (11.6-17.2); WHITE BLOOD COUNT 6.3 TH/MM3 (4.0-11.0)
[2017-04-02 04:40] LABS: ALBUMIN 2.3 GM/DL (3.4-5.0); AST (GOT) 17 U/L (15-37); BICARBONATE 28.7 MEQ/L (21.0-32.0); BLOOD UREA NITROGEN 32 MG/DL (7-18); CALCIUM 8.6 MG/DL (8.5-10.1); CHLORIDE 117 MEQ/L (98-107); CREATININE 0.84 MG/DL (0.60-1.30); GLOMERULAR FILTRATION RATE 98 ML/MIN (>89); GLUCOSE,RANDOM 245 MG/DL (74-106); SODIUM (NA) 153 MEQ/L (136-145)
[2017-04-02 04:41] LABS: ALT (GPT) 20 U/L (12-78)
[2017-04-02 04:43] LABS: ALKALINE PHOSPHATASE 99 U/L (45-117); TOTAL BILIRUBIN ADULT 0.3 MG/DL (0.2-1.0); TOTAL PROTEIN 6.2 GM/DL (6.4-8.2)
--- NOTE | 2017-04-02 04:49 | RADRPT ---
EXAM DATE/TIME: 04/02/2017 04:34 [facility] COMPARISON: CT BRAIN W/O CONTRAST, March 31, 2017, 4:28. INDICATIONS : Follow up traumatic brain injury. RADIATION DOSE: 69.15 CTDIvol (mGy) MEDICAL HISTORY : Non-responsive. SURGICAL HISTORY : Non-responsive. ENCOUNTER: Subsequent ACUITY: 1 week PAIN SCALE: Non-responsive LOCATION: cranial TECHNIQUE: Multiple contiguous axial images were obtained of the head. Using automated exposure control and adj ustment of the mA and/or kV according to patient size, radiation dose was kept as low as reasonably a chievable to obtain optimal diagnostic quality images. DICOM format image data is available electro nically for review and comparison. FINDINGS: Bilateral mastoid opacification, sphenoid, ethmoid and left maxillary sinus opacification end skull b ase fracture is again seen. There is an extra-axial hematoma along the left occipital convexity, not significant changed. Hemorrhage in the posterior horns of the lateral ventricles again seen. Callosal hemorrhage is stable. There is hemorrhage in the interhemispheric fissure which is also unchanged. S ubarachnoid hemorrhage in the bilateral frontal regions is stable as well as bilateral frontal hemorr hagic contusions right greater than left as well as bilateral frontal subdural hemorrhage, unchanged. Cavum septum pellucidum is noted. The right frontal approach ventriculostomy catheter has been remov ed since previous study. There is slight decrease in ventriculomegaly. CONCLUSION: Slight decrease in ventriculomegaly otherwise stable appearance of the brain with intracranial, intra parenchymal and extra-axial hemorrhage noted. Wing Mckeon MD on April 02, 2017 at 4:45 Board Certified Radiologist. This report was verified electronically.
--- NOTE | 2017-04-02 05:43 | RADRPT ---
EXAM DATE/TIME: 04/02/2017 04:18 [facility] COMPARISON: CHEST SINGLE AP, April 01, 2017, 4:12. INDICATIONS : Respiratory disease. MEDICAL HISTORY : None. SURGICAL HISTORY : None. ENCOUNTER: Initial ACUITY: 1 week PAIN SCORE: Non-responsive. LOCATION: Bilateral chest FINDINGS: Endotracheal tube tip at the superior margin the clavicles. Enteric tube tip terminates at the mid es ophageal region. Left subclavian line tip overlies the SVC. Patchy infiltrates are unchanged. Cardiac and aortic. CONCLUSION: Stable appearance of the lungs however NG tube needs to be repositioned. Wing Mckeon MD on April 02, 2017 at 5:41 Board Certified Radiologist. This report was verified electronically.
[2017-04-02] MEDS: FREE WATER G-TUBE SCH ×4 (05:50→16:47)
[2017-04-02] MEDS: CHLORHEXIDINE 0.12% (ORAL KIT) 15 ML CUP MT SCH ×2 (08:00→21:31)
[2017-04-02] MEDS: levETIRAcetam INJ 500 MG in SODIUM CHLORIDE 0.9% INJ 100 ML IV SCH ×2 (08:48→21:54)
[2017-04-02] MEDS: LISINOPRIL 10 MG TAB PO SCH ×2 (08:49→21:31)
[2017-04-02] MEDS: POTASSIUM CHLORIDE 25 MEQ EFFERVESCENT TAB NG SCH (08:49)
[2017-04-02] MEDS: INSULIN DETEMIR 100 UNITS/ML VIAL SQ SCH ×2 (08:49→21:31)
[2017-04-02] MEDS: DOCUSATE SODIUM 50 MG/SENNA 8.6 MG TAB PO SCH ×2 (08:49→21:30)
[2017-04-02] MEDS: MAGNESIUM HYDROXIDE SUSP 30 ML CUP PO SCH ×2 (08:49→21:31)
[2017-04-02] MEDS: FUROSEMIDE 20 MG/2 ML VIAL IV PUSH SCH (08:49)
[2017-04-02] MEDS: LACTULOSE SYRUP 20 GM/30 ML CUP PO SCH (08:49)
[2017-04-02] MEDS: REMOVE OLD PATCH T-DERMAL SCH (08:50)
[2017-04-02] MEDS: cloNIDine HCL 0.1 MG/24 HR PATCH T-DERMAL SCH (08:50)
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
[2017-04-02] MEDS: PANTOPRAZOLE SODIUM 40 MG VIAL IVP SCH (11:45)
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
[2017-04-02] MEDS: ENOXAPARIN SODIUM 40 MG/0.4 ML SYRINGE SQ SCH (15:03)
[2017-04-02] MEDS: RESP: ALBUTEROL 2.5 MG/IPRATROPIUM 0.5 MG NEB (SCH) NEB (20:39)
[2017-04-02] MEDS: RESP: ACETYLCYSTEINE 20% 4 ML NEB NEB SCH (21:00)
[2017-04-03] VITALS (18 sets, daily range): BP systolic 118–146; BP diastolic 59–98; PULSE 87–101; RESP 14–23; TEMP 99.3–100.5; O2SAT 96–100
[2017-04-03] MEDS: FREE WATER G-TUBE SCH ×4 (00:14→17:43)
[2017-04-03] MEDS: hydrALAZINE HCL 20 MG/ML VIAL IV PUSH SCH ×4 (00:14→17:42)
[2017-04-03] MEDS: HIGH DOSE INSULIN NOVOLIN REGULAR SUPPLEMENTAL SCALE SQ SCH ×6 (00:15→20:53)
[2017-04-03] MEDS: AMPICILLIN/SULBAC 3 GM/NS 100 ML IV SCH ×4 (01:41→08:30)
[2017-04-03] MEDS: CHLORHEXIDINE GLUCONATE 2 % 1 PACK (2 CLOTHS) TOP SCH (03:31)
[2017-04-03] MEDS: RESP: ALBUTEROL 2.5 MG/IPRATROPIUM 0.5 MG NEB (SCH) NEB ×4 (03:39→22:00)
[2017-04-03] MEDS: RESP: ACETYLCYSTEINE 20% 4 ML NEB NEB SCH ×4 (03:39→22:00)
[2017-04-03 04:46] LABS: AUTOMATED NEUTROPHIL # 5.8 TH/MM3 (1.8-7.7); BASOPHIL % 0.3 % (0.0-2.0); EOSINOPHIL # 0.1 TH/MM3 (0-0.4); EOSINOPHIL % 1.9 % (0.0-4.0); HEMOGLOBIN 10.3 GM/DL (13.0-17.0); LYMPH % 17.4 % (9.0-44.0); LYMPHOCYTE # 1.4 TH/MM3 (1.0-4.8); MEAN CELL VOLUME 94.4 FL (80.0-100.0); MEAN CORPUSCULAR HEMOGLOBIN 32.3 PG (27.0-34.0); MEAN CORPUSCULAR HGB CONC 34.2 % (32.0-36.0); MEAN PLATELET VOLUME 8.8 FL (7.0-11.0); MONO % 5.9 % (0.0-8.0); MONOCYTE # 0.5 TH/MM3 (0-0.9); NEUT % 74.5 % (16.0-70.0); PLATELET COUNT 239 TH/MM3 (150-450); RED BLOOD COUNT 3.17 MIL/MM3 (4.50-5.90); RED CELL DISTRIBUTION WIDTH 13.5 % (11.6-17.2); WHITE BLOOD COUNT 7.8 TH/MM3 (4.0-11.0)
--- NOTE | 2017-04-03 05:05 | RADRPT ---
EXAM DATE/TIME: 04/03/2017 04:24 [facility] COMPARISON: CHEST SINGLE AP, April 02, 2017, 4:18. INDICATIONS : Short of breath. MEDICAL HISTORY : None. SURGICAL HISTORY : None. ENCOUNTER: Subsequent ACUITY: 1 week PAIN SCORE: 0/10 LOCATION: Bilateral chest FINDINGS: Portable AP view of the chest demonstrates a normal-sized cardiac silhouette. ETT and nasogastric tub e are present. Nasogastric tube distal tip is in the gastric body. Multiple EKG lines overlie the pat ient. Lungs are underinflated with atelectasis at the bases. No pleural effusion or pneumothorax is i dentified. The bones and soft tissues demonstrate no acute finding. CONCLUSION: No acute cardiopulmonary abnormality is identified. There is atelectasis at the lung bases. Rj Bowman MD on April 03, 2017 at 5:03 Board Certified Radiologist. This report was verified electronically.
[2017-04-03 05:08] LABS: ALBUMIN 2.3 GM/DL (3.4-5.0); AST (GOT) 27 U/L (15-37); BICARBONATE 28.5 MEQ/L (21.0-32.0); BLOOD UREA NITROGEN 28 MG/DL (7-18); CALCIUM 8.6 MG/DL (8.5-10.1); CHLORIDE 113 MEQ/L (98-107); CREATININE 0.84 MG/DL (0.60-1.30); GLOMERULAR FILTRATION RATE 98 ML/MIN (>89); GLUCOSE,RANDOM 197 MG/DL (74-106); SODIUM (NA) 148 MEQ/L (136-145)
[2017-04-03 05:12] LABS: ALKALINE PHOSPHATASE 106 U/L (45-117); ALT (GPT) 22 U/L (12-78); TOTAL BILIRUBIN ADULT 0.3 MG/DL (0.2-1.0); TOTAL PROTEIN 6.2 GM/DL (6.4-8.2)
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
[2017-04-03] MEDS: CHLORHEXIDINE 0.12% (ORAL KIT) 15 ML CUP MT SCH ×2 (08:00→20:53)
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
[2017-04-03] MEDS ORDERED: MAGNESIUM CITRATE SOLN 300 ML BTL PO ONE (08:30)
[2017-04-03] MEDS: LACTULOSE SYRUP 20 GM/30 ML CUP PO SCH (08:30)
[2017-04-03] MEDS: levETIRAcetam INJ 500 MG in SODIUM CHLORIDE 0.9% INJ 100 ML IV SCH ×2 (08:30→20:53)
[2017-04-03] MEDS: MAGNESIUM HYDROXIDE SUSP 30 ML CUP PO SCH ×2 (08:31→20:54)
[2017-04-03] MEDS: DOCUSATE SODIUM 50 MG/SENNA 8.6 MG TAB PO SCH ×2 (08:31→20:54)
[2017-04-03] MEDS: LISINOPRIL 10 MG TAB PO SCH ×2 (08:31→20:54)
[2017-04-03] MEDS: INSULIN DETEMIR 100 UNITS/ML VIAL SQ SCH ×2 (09:00→20:54)
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
[2017-04-03] MEDS ORDERED: AMANTADINE HCL 100 MG CAP PO ONE (09:30)
[2017-04-03] MEDS: PANTOPRAZOLE SODIUM 40 MG VIAL IVP SCH (11:42)
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
[2017-04-03] MEDS: ENOXAPARIN SODIUM 40 MG/0.4 ML SYRINGE SQ SCH (14:14)
[2017-04-04] VITALS (18 sets, daily range): BP systolic 108–152; BP diastolic 52–70; PULSE 89–111; RESP 16–25; TEMP 99–100.1; O2SAT 95–99
[2017-04-04] MEDS: hydrALAZINE HCL 20 MG/ML VIAL IV PUSH SCH ×4 (00:26→17:58)
[2017-04-04] MEDS: HIGH DOSE INSULIN NOVOLIN REGULAR SUPPLEMENTAL SCALE SQ SCH ×6 (00:27→21:48)
[2017-04-04] MEDS: CHLORHEXIDINE GLUCONATE 2 % 1 PACK (2 CLOTHS) TOP SCH (04:00)
[2017-04-04] MEDS: RESP: ALBUTEROL 2.5 MG/IPRATROPIUM 0.5 MG NEB (SCH) NEB ×4 (04:00→21:49)
[2017-04-04] MEDS: RESP: ACETYLCYSTEINE 20% 4 ML NEB NEB SCH ×4 (04:00→21:49)
--- NOTE | 2017-04-04 05:16 | RADRPT ---
EXAM DATE/TIME: 04/04/2017 04:19 [place] COMPARISON: CHEST SINGLE AP, April 03, 2017, 4:24. INDICATIONS : Short of breath, respiratory disease. MEDICAL HISTORY : None. SURGICAL HISTORY : None. ENCOUNTER: Subsequent ACUITY: 1 week PAIN SCORE: 0/10 LOCATION: Bilateral chest FINDINGS: Rotated and underinflated AP view of the chest demonstrates a normal-sized cardiac silhouette. ETT an d nasogastric tube remain present. EKG lines overlie the patient. There is atelectasis at the lung ba ses. No pleural effusion or pneumothorax is identified. CONCLUSION: Underinflated examination with atelectasis at the lung bases. No other acute finding is identified. Rj Bowman MD on April 04, 2017 at 5:14 Board Certified Radiologist. This report was verified electronically.
[2017-04-04] MEDS: FREE WATER G-TUBE SCH ×4 (05:27→17:58)
[2017-04-04 05:39] LABS: AUTOMATED NEUTROPHIL # 5.1 TH/MM3 (1.8-7.7); BASOPHIL % 0.6 % (0.0-2.0); EOSINOPHIL # 0.2 TH/MM3 (0-0.4); EOSINOPHIL % 2.4 % (0.0-4.0); HEMATOCRIT 31.9 % (39.0-51.0); HEMOGLOBIN 10.6 GM/DL (13.0-17.0); LYMPH % 19.4 % (9.0-44.0); LYMPHOCYTE # 1.4 TH/MM3 (1.0-4.8); MEAN CELL VOLUME 94.2 FL (80.0-100.0); MEAN CORPUSCULAR HEMOGLOBIN 31.2 PG (27.0-34.0); MEAN CORPUSCULAR HGB CONC 33.1 % (32.0-36.0); MEAN PLATELET VOLUME 9.2 FL (7.0-11.0); MONO % 5.5 % (0.0-8.0); MONOCYTE # 0.4 TH/MM3 (0-0.9); NEUT % 72.1 % (16.0-70.0); PLATELET COUNT 275 TH/MM3 (150-450); RED BLOOD COUNT 3.38 MIL/MM3 (4.50-5.90); RED CELL DISTRIBUTION WIDTH 13.1 % (11.6-17.2); WHITE BLOOD COUNT 7.1 TH/MM3 (4.0-11.0)
[2017-04-04 05:53] LABS: ALBUMIN 2.5 GM/DL (3.4-5.0); ALT (GPT) 26 U/L (12-78); AST (GOT) 27 U/L (15-37); BICARBONATE 28.4 MEQ/L (21.0-32.0); BLOOD UREA NITROGEN 27 MG/DL (7-18); CALCIUM 8.4 MG/DL (8.5-10.1); CHLORIDE 113 MEQ/L (98-107); CREATININE 0.81 MG/DL (0.60-1.30); GLOMERULAR FILTRATION RATE 102 ML/MIN (>89); GLUCOSE,RANDOM 151 MG/DL (74-106); SODIUM (NA) 148 MEQ/L (136-145)
[2017-04-04 05:56] LABS: ALKALINE PHOSPHATASE 107 U/L (45-117); TOTAL BILIRUBIN ADULT 0.3 MG/DL (0.2-1.0); TOTAL PROTEIN 6.6 GM/DL (6.4-8.2)
[2017-04-04] MEDS ORDERED: AMANTADINE HCL 100 MG CAP PO SCH (07:00)
[2017-04-04] MEDS: LISINOPRIL 10 MG TAB PO SCH ×2 (08:05→21:00)
[2017-04-04] MEDS: MAGNESIUM HYDROXIDE SUSP 30 ML CUP PO SCH ×2 (08:06→20:45)
[2017-04-04] MEDS: LACTULOSE SYRUP 20 GM/30 ML CUP PO SCH (08:06)
[2017-04-04] MEDS: DOCUSATE SODIUM 50 MG/SENNA 8.6 MG TAB PO SCH ×2 (08:06→20:46)
[2017-04-04] MEDS: CHLORHEXIDINE 0.12% (ORAL KIT) 15 ML CUP MT SCH ×2 (08:06→21:49)
[2017-04-04] MEDS: INSULIN DETEMIR 100 UNITS/ML VIAL SQ SCH ×2 (09:00→21:48)
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
[2017-04-04] MEDS: PANTOPRAZOLE SODIUM 40 MG VIAL IVP SCH (11:03)
[2017-04-04] MEDS: AMANTADINE HCL 100 MG CAP PO SCH (11:04)
[2017-04-04] MEDS: ENOXAPARIN SODIUM 40 MG/0.4 ML SYRINGE SQ SCH (13:48)
[2017-04-04] MEDS: ACETAMINOPHEN 325 MG TAB PO PRN (13:48)
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
[2017-04-05] VITALS (18 sets, daily range): BP systolic 108–136; BP diastolic 57–64; PULSE 96–108; RESP 14–19; TEMP 98.4–102.7; O2SAT 93–100
[2017-04-05] MEDS: HIGH DOSE INSULIN NOVOLIN REGULAR SUPPLEMENTAL SCALE SQ SCH ×7 (00:33→23:51)
[2017-04-05] MEDS: RESP: ACETYLCYSTEINE 20% 4 ML NEB NEB SCH ×4 (04:00→22:36)
[2017-04-05] MEDS: CHLORHEXIDINE GLUCONATE 2 % 1 PACK (2 CLOTHS) TOP SCH (04:00)
[2017-04-05] MEDS: RESP: ALBUTEROL 2.5 MG/IPRATROPIUM 0.5 MG NEB (SCH) NEB ×4 (04:00→22:45)
[2017-04-05 05:30] LABS: AUTOMATED NEUTROPHIL # 6.7 TH/MM3 (1.8-7.7); BASOPHIL # 0.1 TH/MM3 (0-0.2); BASOPHIL % 0.6 % (0.0-2.0); EOSINOPHIL # 0.2 TH/MM3 (0-0.4); EOSINOPHIL % 2.1 % (0.0-4.0); HEMATOCRIT 31.4 % (39.0-51.0); HEMOGLOBIN 10.3 GM/DL (13.0-17.0); LYMPH % 12.7 % (9.0-44.0); LYMPHOCYTE # 1.1 TH/MM3 (1.0-4.8); MEAN CORPUSCULAR HEMOGLOBIN 31.3 PG (27.0-34.0); MEAN CORPUSCULAR HGB CONC 32.9 % (32.0-36.0); MEAN PLATELET VOLUME 9.5 FL (7.0-11.0); MONO % 5.3 % (0.0-8.0); MONOCYTE # 0.4 TH/MM3 (0-0.9); NEUT % 79.3 % (16.0-70.0); PLATELET COUNT 295 TH/MM3 (150-450); RED BLOOD COUNT 3.31 MIL/MM3 (4.50-5.90); WHITE BLOOD COUNT 8.5 TH/MM3 (4.0-11.0)
[2017-04-05 05:53] LABS: ALBUMIN 2.4 GM/DL (3.4-5.0); AST (GOT) 15 U/L (15-37); BICARBONATE 25.9 MEQ/L (21.0-32.0); BLOOD UREA NITROGEN 33 MG/DL (7-18); CALCIUM 9.1 MG/DL (8.5-10.1); CHLORIDE 111 MEQ/L (98-107); CREATININE 0.95 MG/DL (0.60-1.30); GLOMERULAR FILTRATION RATE 85 ML/MIN (>89); GLUCOSE,RANDOM 206 MG/DL (74-106); SODIUM (NA) 145 MEQ/L (136-145)
[2017-04-05 05:57] LABS: ALKALINE PHOSPHATASE 105 U/L (45-117); ALT (GPT) 24 U/L (12-78); TOTAL BILIRUBIN ADULT 0.4 MG/DL (0.2-1.0); TOTAL PROTEIN 6.7 GM/DL (6.4-8.2)
[2017-04-05] MEDS: FREE WATER G-TUBE SCH ×5 (06:00→23:50)
[2017-04-05] MEDS: hydrALAZINE HCL 20 MG/ML VIAL IV PUSH SCH ×5 (06:00→23:50)
--- NOTE | 2017-04-05 06:10 | RADRPT ---
EXAM DATE/TIME: 04/05/2017 04:59 [facility] COMPARISON: CHEST SINGLE AP, April 04, 2017, 4:19. INDICATIONS : Shortness of breath. MEDICAL HISTORY : Non-responsive. SURGICAL HISTORY : Non-responsive. ENCOUNTER: Subsequent ACUITY: 1 week PAIN SCORE: Non-responsive. LOCATION: Bilateral chest FINDINGS: Portable AP view of the chest demonstrates a normal-sized cardiac silhouette. ETT and nasogastric tub e are present. Lungs are underinflated with atelectasis at the lung bases. No effusion or pneumothora x is identified. Bones demonstrate no acute finding. CONCLUSION: Underinflated examination with atelectasis at the lung bases. Otherwise, no acute finding is identifi ed. Rj Bowman MD on April 05, 2017 at 6:08 Board Certified Radiologist. This report was verified electronically.
[2017-04-05] MEDS: AMANTADINE HCL 100 MG CAP PO SCH ×2 (06:11→12:56)
[2017-04-05] MEDS: CHLORHEXIDINE 0.12% (ORAL KIT) 15 ML CUP MT SCH ×2 (08:00→20:00)
[2017-04-05] MEDS: INSULIN DETEMIR 100 UNITS/ML VIAL SQ SCH ×2 (08:20→21:25)
[2017-04-05] MEDS: FAMOTIDINE 20 MG TAB PO SCH ×2 (08:20→21:25)
[2017-04-05] MEDS: LISINOPRIL 10 MG TAB PO SCH ×2 (08:20→21:25)
[2017-04-05] MEDS: MAGNESIUM HYDROXIDE SUSP 30 ML CUP PO SCH ×2 (09:00→21:25)
[2017-04-05] MEDS: DOCUSATE SODIUM 50 MG/SENNA 8.6 MG TAB PO SCH ×2 (09:00→21:25)
[2017-04-05] MEDS: LACTULOSE SYRUP 20 GM/30 ML CUP PO SCH (09:00)
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
[2017-04-05] MEDS: HYOSCYAMINE 0.125 MG TAB PO PRN (12:56)
[2017-04-05] MEDS: ACETAMINOPHEN 325 MG TAB PO PRN (13:12)
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
[2017-04-06] VITALS (17 sets, daily range): BP systolic 113–134; BP diastolic 59–71; PULSE 91–107; RESP 15–18; TEMP 100.3–102.2; O2SAT 95–100
[2017-04-06] MEDS: CHLORHEXIDINE GLUCONATE 2 % 1 PACK (2 CLOTHS) TOP SCH (03:12)
[2017-04-06] MEDS: HIGH DOSE INSULIN NOVOLIN REGULAR SUPPLEMENTAL SCALE SQ SCH ×5 (03:45→20:00)
[2017-04-06] MEDS: RESP: ACETYLCYSTEINE 20% 4 ML NEB NEB SCH ×4 (04:00→20:44)
[2017-04-06] MEDS: RESP: ALBUTEROL 2.5 MG/IPRATROPIUM 0.5 MG NEB (SCH) NEB ×4 (04:00→20:44)
[2017-04-06] MEDS: hydrALAZINE HCL 20 MG/ML VIAL IV PUSH SCH ×3 (05:17→18:00)
[2017-04-06] MEDS: FREE WATER G-TUBE SCH ×3 (05:17→17:59)
[2017-04-06] MEDS: AMANTADINE HCL 100 MG CAP PO SCH (07:00)
[2017-04-06] MEDS: CHLORHEXIDINE 0.12% (ORAL KIT) 15 ML CUP MT SCH ×2 (08:00→20:00)
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
[2017-04-06] MEDS ORDERED: AMANTADINE HCL 100 MG CAP PO ONE (09:30)
[2017-04-06] MEDS ORDERED: VECURONIUM BROMIDE 10 MG VIAL IV PUSH SCH (09:45)
[2017-04-06] MEDS: LACTULOSE SYRUP 20 GM/30 ML CUP PO SCH (10:05)
[2017-04-06] MEDS: INSULIN DETEMIR 100 UNITS/ML VIAL SQ SCH ×2 (10:05→22:28)
[2017-04-06] MEDS: MAGNESIUM HYDROXIDE SUSP 30 ML CUP PO SCH ×2 (10:05→22:26)
[2017-04-06] MEDS: LISINOPRIL 10 MG TAB PO SCH ×2 (10:05→22:26)
[2017-04-06] MEDS: FAMOTIDINE 20 MG TAB PO SCH ×2 (10:05→22:26)
[2017-04-06] MEDS: DOCUSATE SODIUM 50 MG/SENNA 8.6 MG TAB PO SCH ×2 (10:05→22:26)
--- NOTE | 2017-04-06 11:18 | GIPROC ---
[facility] [address] [facility]. [facility], [id number] EGD WITH PEG PROCEDURE REPORT EXAM DATE: 04/06/2017 PATIENT NAME: Edison Jacinto MR#: [id number] BIRTHDATE: 1970 ATTENDING: Melinda De La Cruz MD ORDER #: [id number] FOLDER SEAMER: Irene Oliveira and Jacquelin Morales STATUS: inpatient INDICATIONS: The patient is a 46 yr old male here for an EGD with PEG due to dysphagia and feeding difficulties, ventilator dependent PROCEDURE PERFORMED: EGD with PEG placement MEDICATIONS: None and Per Anesthesia. TOPICAL ANESTHETIC: none CONSENT: The patient understands the risks and benefits of the procedure and understands that these risks include, but are not limited to: sedation, allergic reaction, infection, perforation and/or bleeding. Alternative means of evaluation and treatment include, among others: physical exam, x-rays, and/or surgical intervention. The patient elects to proceed with this endoscopic procedure. medical equipment was checked for proper function. Hand hygiene and appropriate measures for infection prevention was taken. After the risks, benefits and alternatives of the procedure were thoroughly explained, Informed consent was verified, confirmed and timeout was successfully executed by the treatment team. The patient was anesthetized with topical anesthesia and the Pentax [id number] endoscope was introduced through the mouth and advanced to the second portion of the duodenum. The instrument was slowly withdrawn as the mucosa was fully examined. The upper, middle, and distal third of the esophagus were carefully inspected and no abnormalities were noted. The z-line was well seen at the GEJ. The endoscope was pushed into the fundus which was normal including a retroflexed view. The antrum, first and second part of the duodenum were unremarkable. The stomach was then inflated with air, and by a combination of transillumination and manual palpation, the site for the gastrostomy tube placement was selected and marked on the anterior abdominal wall. The skin of the anterior abdomen was surgically prepped and draped with sterile towels. Utilizing strict sterile technique, the selected site was then anesthetized with 1% xylocaine by injection into the skin and subcutaneous tissue. A 1 cm incision was made through the skin and subcutaneous tissue, and the needle/cannula assembly was then passed through the abdominal wall and through the anterior wall of the stomach, maintaining visualization with the endoscope. A snare device previously placed through the instrument channel was then opened and placed around the cannula, the needle was removed, and the insertion wire was passed through the cannula and into the stomach lumen. The snare was then loosened from the cannula, and repositioned to snare the insertion wire. The snare was then pulled up to the endoscope distal tip, and the scope was then withdrawn bringing with it the snare and insertion wire. The insertion wire was then released from the snare, and then loop-attached to the gastrostomy tube. Using the "pull technique", the G-tube was then pulled into place by traction on the insertion wire at the abdominal wall end. The G-tube insertion site was then cleansed once again, and the external bolster was placed over the tube to secure it to the abdominal wall. A sterile dressing was then applied, and the procedure terminated. a hiatal hernia The gastroscope was then slowly withdrawn and removed. ADVERSE EVENT: There were no complications. IMPRESSIONS: 1. The upper, middle, and distal third of the esophagus were carefully inspected and no abnormalities were noted. The z-line was well seen at the GEJ. The endoscope was pushed into the fundus which was normal including a retroflexed view. The antrum, first and second part of the duodenum were unremarkable. 2. A hiatal hernia RECOMMENDATIONS: 1. Anti-reflux regimen 2. Continue PPI 3. ok to use peg for medications today abdominal binder start tf in am REPEAT EXAM: procedure as needed Melinda De La Cruz MD eSigned: Melinda De La Cruz MD 04/06/2017 11:17 AM cc: PATIENT NAME: Edison Jacinto MR#: [id number]
[2017-04-06] MEDS ORDERED: LIDOCAINE HCL 1% PF 5 ML SYRINGE OTHER ONE (12:00)
[2017-04-06] MEDS ORDERED: PROPOFOL 200 MG/20 ML AMP IV ONE (12:00)
[2017-04-06] MEDS ORDERED: PHENYLEPH/NS 1000 MCG/10 ML SYR IV ONE (12:00)
[2017-04-06] MEDS: DEXTROSE 5% IN WATE 1000ML INJ 1,000 ML IV SCH (15:00)
[2017-04-06] MEDS: ENOXAPARIN SODIUM 30 MG/0.3 ML SYRINGE SQ SCH (16:00)
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
[2017-04-06] MEDS ORDERED: RESP: ACETYLCYSTEINE 20% 30 ML NEB NEB SCH (22:00)
[2017-04-07] VITALS (20 sets, daily range): BP systolic 111–176; BP diastolic 54–77; PULSE 82–106; RESP 17–38; TEMP 99.6–102; O2SAT 93–100
[2017-04-07 03:42] LABS: AUTOMATED NEUTROPHIL # 7.1 TH/MM3 (1.8-7.7); BASOPHIL # 0.1 TH/MM3 (0-0.2); BASOPHIL % 0.7 % (0.0-2.0); EOSINOPHIL # 0.1 TH/MM3 (0-0.4); EOSINOPHIL % 1.2 % (0.0-4.0); HEMATOCRIT 29.8 % (39.0-51.0); LYMPHOCYTE # 1.1 TH/MM3 (1.0-4.8); MEAN CELL VOLUME 94.9 FL (80.0-100.0); MEAN CORPUSCULAR HGB CONC 33.7 % (32.0-36.0); MEAN PLATELET VOLUME 9.3 FL (7.0-11.0); MONO % 6.3 % (0.0-8.0); MONOCYTE # 0.6 TH/MM3 (0-0.9); NEUT % 79.8 % (16.0-70.0); PLATELET COUNT 326 TH/MM3 (150-450); RED BLOOD COUNT 3.14 MIL/MM3 (4.50-5.90); RED CELL DISTRIBUTION WIDTH 12.8 % (11.6-17.2); WHITE BLOOD COUNT 8.8 TH/MM3 (4.0-11.0)
[2017-04-07] MEDS: RESP: ACETYLCYSTEINE 20% 4 ML NEB NEB SCH ×4 (03:44→20:55)
[2017-04-07] MEDS: RESP: ALBUTEROL 2.5 MG/IPRATROPIUM 0.5 MG NEB (PRN) NEB ×4 (03:44→20:55)
[2017-04-07] MEDS: ENOXAPARIN SODIUM 30 MG/0.3 ML SYRINGE SQ SCH ×3 (04:00→20:12)
[2017-04-07] MEDS: HIGH DOSE INSULIN NOVOLIN REGULAR SUPPLEMENTAL SCALE SQ SCH ×6 (04:00→21:15)
[2017-04-07] MEDS: CHLORHEXIDINE GLUCONATE 2 % 1 PACK (2 CLOTHS) TOP SCH (04:00)
[2017-04-07 04:02] LABS: BICARBONATE 31.4 MEQ/L (21.0-32.0); CALCIUM 8.6 MG/DL (8.5-10.1); CREATININE 0.95 MG/DL (0.60-1.30)
[2017-04-07] MEDS: hydrALAZINE HCL 20 MG/ML VIAL IV PUSH SCH ×2 (04:22)
[2017-04-07] MEDS: ACETAMINOPHEN 325 MG TAB PO PRN (05:10)
[2017-04-07] MEDS: FREE WATER G-TUBE SCH ×5 (05:26→20:00)
[2017-04-07] MEDS: AMANTADINE HCL 100 MG CAP PO SCH ×2 (06:09→12:00)
[2017-04-07] MEDS: DEXTROSE 5% IN WATE 1000ML INJ 1,000 ML IV SCH (07:40)
[2017-04-07] MEDS: CHLORHEXIDINE 0.12% (ORAL KIT) 15 ML CUP MT SCH ×2 (08:00→20:00)
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
[2017-04-07] MEDS: LISINOPRIL 10 MG TAB PO SCH ×2 (09:00→20:13)
[2017-04-07] MEDS: MAGNESIUM HYDROXIDE SUSP 30 ML CUP PO SCH ×2 (09:00→20:13)
[2017-04-07] MEDS: LACTULOSE SYRUP 20 GM/30 ML CUP PO SCH (09:00)
[2017-04-07] MEDS: DOCUSATE SODIUM 50 MG/SENNA 8.6 MG TAB PO SCH ×2 (09:00→20:13)
[2017-04-07] MEDS: FAMOTIDINE 20 MG TAB PO SCH ×2 (09:00→20:13)
[2017-04-07] MEDS: INSULIN DETEMIR 100 UNITS/ML VIAL SQ SCH ×2 (09:00→21:15)
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
--- NOTE | 2017-04-07 11:56 | HHI.GIFU ---
Subjective Remarks Pt resting in bed, family at beside. Remains intubated and mechanically ventilated. Per family he was awake a few minute prior to my exam. Does not open eyes during my exam. PEG tube clamped. Site with no active drainage, gauze is clean and dry. (Fide Yusuf) Objective Vitals I&O Vital Signs Date Time Temp Pulse Resp B/P (MAP) Pulse Ox O2 Delivery O2 Flow Rate FiO2 04/07/17 10:00 96 04/07/17 08:33 35 04/07/17 08:33 97 35 04/07/17 08:00 99.9 82 21 126/54 (78) 97 04/07/17 08:00 35 04/07/17 08:00 82 04/07/17 06:00 92 04/07/17 04:25 96 35 04/07/17 04:00 102.0 102 17 122/60 (80) 95 04/07/17 04:00 100 04/07/17 04:00 35 04/07/17 02:00 94 04/07/17 01:14 96 35 04/07/17 00:00 35 04/07/17 00:00 98 04/07/17 00:00 101.0 98 20 111/58 (75) 95 04/06/17 22:00 95 04/06/17 20:45 100 35 04/06/17 20:00 35 04/06/17 20:00 100.3 99 15 133/71 (91) 99 04/06/17 20:00 99 04/06/17 18:00 97 04/06/17 16:03 95 35 04/06/17 16:00 35 04/06/17 16:00 102.2 104 16 113/60 (77) 95 04/06/17 16:00 104 04/06/17 14:00 104 04/06/17 12:30 35 04/06/17 12:13 100 100 04/06/17 12:00 107 04/06/17 12:00 101.2 94 18 134/60 (84) 96 04/06/17 12:00 100 I/O 04/06/17 04/06/17 04/06/17 04/07/17 04/07/17 04/07/17 07:00 15:00 23:00 07:00 15:00 23:00 Intake Total 400 ml 300 ml 370 ml 400 ml Output Total 1100 ml 100 ml 900 ml Balance -700 ml 300 ml 270 ml -500 ml Intake IV Total 100 ml Tube Irrigant 400 ml 370 ml 400 ml Other 200 ml Output Urine Total 1100 ml 100 ml 900 ml # Bowel Movements 0 1 1 Laboratory Laboratory Tests Test 04/07/17 03:29 04/07/17 05:36 White Blood Count 8.8 Red Blood Count 3.14 Hemoglobin 10.0 Hematocrit 29.8 Mean Corpuscular Volume 94.9 Mean Corpuscular Hemoglobin 32.0 Mean Corpuscular Hemoglobin Concent 33.7 Red Cell Distribution Width 12.8 Platelet Count 326 Mean Platelet Volume 9.3 Neutrophils (%) (Auto) 79.8 Lymphocytes (%) (Auto) 12.0 Monocytes (%) (Auto) 6.3 Eosinophils (%) (Auto) 1.2 Basophils (%) (Auto) 0.7 Neutrophils # (Auto) 7.1 Lymphocytes # (Auto) 1.1 Monocytes # (Auto) 0.6 Eosinophils # (Auto) 0.1 Basophils # (Auto) 0.1 CBC Comment DIFF FINAL Differential Comment Blood Urea Nitrogen 26 Creatinine 0.95 Random Glucose 199 Calcium Level 8.6 Sodium Level 146 Potassium Level 4.2 Chloride Level 110 Carbon Dioxide Level 31.4 Anion Gap 5 Estimat Glomerular Filtration Rate 85 Blood Gas Puncture Site RT RADIAL Blood Gas Patient Temperature 98.6 Blood Gas HCO3 25 Blood Gas Base Excess 2.0 Blood Gas Oxygen Saturation 96 Arterial Blood pH 7.49 Arterial Blood Partial Pressure CO2 33 Arterial Blood Partial Pressure O2 96 Arterial Blood Oxygen Content 14.1 Arterial Blood Carboxyhemoglobin 1.5 Arterial Blood Methemoglobin 0.2 Blood Gas Hemoglobin 10.3 Oxygen Delivery Device VENTILATOR Blood Gas Ventilator Setting PRVC/AC Blood Gas Inspired Oxygen 35 Date/Time Source Procedure Growth Status 04/06/17 20:40 Blood Peripheral Aerobic Blood Culture - Preliminary NO GROWTH IN 1 DAY Resulted 04/06/17 20:40 Blood Peripheral Anaerobic Blood Culture - Preliminary NO GROWTH IN 1 DAY Resulted 04/06/17 14:40 Sputum Endotracheal Gram Stain - Final Resulted 04/06/17 14:40 Sputum Endotracheal Sputum Culture Pending Resulted Imaging Last Impressions Chest X-Ray 04/05/17 0600 Signed Impressions: Service Date/Time: Wednesday, April 05, 2017 04:59 - CONCLUSION: Underinflated examination with atelectasis at the lung bases. Otherwise, no acute finding is identified. Rj Bowman MD Head CT 04/02/17 0000 Signed Impressions: Service Date/Time: Sunday, April 02, 2017 04:34 - CONCLUSION: Slight decrease in ventriculomegaly otherwise stable appearance of the brain with intracranial, intraparenchymal and extra-axial hemorrhage noted. Wing Mckeon MD Maxillofacial CT 03/25/17 0820 Signed Impressions: Service Date/Time: Saturday, March 25, 2017 09:32 - CONCLUSION: Multiple abnormalities. There is widening of the left zygomatic parietal suture with adjacent air seen both adjacent to the suture widening as well as scattered throughout the imaged portion of the brain. There is extensive intraparenchymal , subdural and subarachnoid hemorrhage identified within the imaged portion of the brain. Blood is identified within the atria of the lateral ventricles. Blood is also identified in the sinuses without visible adjacent fracture. Evie Woods MD ADDENDUM: There is a fracture of the left-sided temporal bone involving the squamous portion of the temporal bone and the mastoid air cells. There is also a fracture of the skull base through the sphenoid bone on the left best seen on the coronal images. Gorge Phillip MD Cervical Spine CT 03/25/17 0818 Signed Impressions: Service Date/Time: Saturday, March 25, 2017 09:32 - CONCLUSION: 1. No evidence of fracture or soft tissue abnormality. 2. Fluid within the mastoid air cells without evidence of visible fracture. 3. Endotracheal tube identified within the trachea. The imaged lung apices are clear.. Evie Woods MD Pelvis X-Ray 03/25/17 0807 Signed Impressions: Service Date/Time: Saturday, March 25, 2017 08:23 - CONCLUSION: Nonobstructive bowel gas pattern. Line projecting over the right hemipelvis is likely intravascular.. Evie Woods MD Physical Exam HEENT: Normocephalic; atraumatic CHEST: Mechanically ventilated CARDIAC: RRR ABDOMEN: Distended, soft, bowel sounds active. PEG tube site with no active drainage. Gauze is clean and try. PEG clamped. SKIN: Normal; no rash; no jaundice. 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 d/w she is agreeable to proceed. - SAH, SDH, s/p crani (04/07) --> S/P EGD with PEG tube placement yesterday --> Normal EGD. Hiatal hernia. PEG tube placed. PEG tube currently clamped, site with no active drainage, gauze is clean and dry. OK to start TF, dietary recommends Vital high protein with goal rate of 60 mL/hr x 24 hours. Spoke with RN she states they are holding on TF right now because they plan to try extubating the pt this afternoon. PLAN - TF- Vital high protein- goal rate 60 mL/hr x 24 hrs - Flush q 8 hrs - GI will sign off, please reconsult as needed Pt has been seen and examined by myself and Dr. De La Cruz and this note is written on her behalf (Fide Yusuf) Physician Comments seen, examined agree with above ok to start feeding (Melinda De La Cruz MD) Fide Yusuf Apr 07, 2017 11:56 Melinda De La Cruz MD Apr 07, 2017 18:51
[2017-04-07] MEDS ORDERED: hydrALAZINE HCL 20 MG/ML VIAL IV PUSH PRN (13:00)
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
[2017-04-07] MEDS: VANCOMYCIN INJ 1,000 MG in SODIUM CHLOR 0.9% 250 ML INJ 250 ML IV SCH (15:00)
[2017-04-07] MEDS: PIPERACIL-TAZO 3.375 GM PREMIX 50 ML IV SCH ×2 (15:16→20:13)
[2017-04-07] MEDS ORDERED: MIDAZOLAM HCL 5 MG/ML VIAL (1 ML) ONE (16:22)
[2017-04-07] MEDS ORDERED: ROCURONIUM INJ 50 MG/5 ML VIAL ONE (16:23)
[2017-04-07] MEDS ORDERED: MIDAZOLAM HCL 5 MG/ML VIAL (1 ML) IV PUSH ONE (16:30)
[2017-04-07] MEDS ORDERED: ROCURONIUM INJ 100 MG/10 ML VIAL IV ONE (16:30)
--- NOTE | 2017-04-07 17:39 | PD.OP ---
Operative Report Traumatic brain injury, respiratory failure Postoperative Diagnosis: Traumatic brain injury, respiratory failure Procedure: Percutaneous dilational tracheostomy Anesthesia: Versed fentanyl rocuronium Surgeon: Princess Bryan Hand Ii Tube Bender(s): None Operation and Findings: 46-year-old male with traumatic brain injury. Patient today failed extubation required to be reintubated. At this stage traumatic brain injury exhibition failure we decided to proceed with tracheostomy. Consent was obtained for patient's healthcare proxy. We proceeded with tracheostomy using percutaneous technique, bronchoscopy was performed by solar thermal technician Dr. Manuelito Shields. Technique After administration of chemical paralysis and sedation patient's neck was sterilely prepped and draped using the usual technique. Vertical incision was performed at the midline. Dr. Shields advanced the bronchoscope and under guidance the ET tube was withdrawn to 18 cm. The trachea was penetrated with the Angiocath ,guidewire was introduced under direct vision,and trachea was dilated serially. Under direct vision 8 size tracheostomy tube was introduced. Bronchoscopy and end-tidal CO2 confirms good position. Patient towards procedure well. Family was updated after the procedure. Princess Bryan MD Apr 07, 2017 17:39
--- NOTE | 2017-04-07 19:48 | PD.PROCEDR ---
Procedure Note Procedure Endotracheal Intubation Diagnosis: Acute encephalopathy Indications: Acute hypoxic respiratory failure Consent: Emergent Anesthesia: Versed 10 mg IV, Rocuronium 100 mg IV Description of the Procedure: The patient was positioned in the sniffing position. Pre-oxygenation was performed using a [id number]. Anesthesia was induced via rapid sequence. A Ortiz #2 was used for laryngoscopy and a Grade I view was obtained. A 8.5 cuffed endotracheal tube was inserted atraumatically through the vocal cords. Confirmation of correct endotracheal tube placement was made by equal and bilateral breath sounds and colorimetric CO2 detection. The endotracheal tube was secured at 22 cm at the teeth. There were no immediate complications noted. The patient remained hemodynamically stable throughout the procedure. A chest x-ray has been ordered. I personally performed the procedure. Edgar Egan MD Apr 07, 2017 19:48
--- NOTE | 2017-04-07 19:49 | PD.PROCEDR ---
Procedure Note Procedure Procedure: Diagnostic Fiberoptic Bronchoscopy Diagnosis: Chronic respiratory failure Indications: Need for placement of percutaneous dilation tracheostomy Consent: Written consent was obtained Anesthesia: Versed 10 mg IV Description of the Procedure: The patient was sedated and mechanically ventilated. The patient was placed on 100% FIO2 and a volume control mode of ventilation. The fiberoptic bronchoscopy was inserted via oral endotracheal tube. The trachea, right and left mainstem bronchi, and sub-segmental bronchi were evaluated. The endobronchial anatomy was normal. At this point, the percutaneous dilation tracheostomy procedure was performed. The needle, guidewire, dilator, and tracheostomy were all performed under direct bronchoscopic guidance and visualization. Once the tracheostomy was in place, the bronchoscope was inserted through the tracheostomy, and the lumen of the tracheostomy was confirmed in the lumen of the trachea prior to any positive pressure ventilation. Findings: Moderate amount of secretions in the right lower lobe BAL samples: No Samples were sent The patient tolerated the procedure well with no hemodynamic instability or hypoxia. There were no immediate complications noted. At the conclusion of the procedure, the patient was placed back on their pre-procedure ventilatory settings. There was minimal EBL. A chest x-ray has been ordered. I personally performed the procedure. Edgar Egan MD Apr 07, 2017 19:48
[2017-04-08] VITALS (18 sets, daily range): BP systolic 125–152; BP diastolic 58–68; PULSE 72–106; RESP 18–25; TEMP 99.5–102.1; O2SAT 94–99
[2017-04-08] MEDS: ACETAMINOPHEN 325 MG TAB PO PRN ×2 (00:10→12:16)
[2017-04-08] MEDS: DEXTROSE 5% IN WATE 1000ML INJ 1,000 ML IV SCH (00:20)
[2017-04-08] MEDS: PIPERACIL-TAZO 3.375 GM PREMIX 50 ML IV SCH ×4 (03:00→20:35)
[2017-04-08] MEDS: CHLORHEXIDINE GLUCONATE 2 % 1 PACK (2 CLOTHS) TOP SCH (03:10)
[2017-04-08] MEDS: HIGH DOSE INSULIN NOVOLIN REGULAR SUPPLEMENTAL SCALE SQ SCH ×6 (04:00→20:34)
[2017-04-08] MEDS: FREE WATER G-TUBE SCH ×7 (04:00→23:25)
[2017-04-08] MEDS: RESP: ACETYLCYSTEINE 20% 4 ML NEB NEB SCH ×4 (04:34→20:50)
[2017-04-08] MEDS: RESP: ALBUTEROL 2.5 MG/IPRATROPIUM 0.5 MG NEB (PRN) NEB ×4 (04:34→20:49)
--- NOTE | 2017-04-08 05:56 | RADRPT ---
EXAM DATE/TIME: 04/08/2017 03:43 [facility] COMPARISON: CHEST SINGLE AP, April 05, 2017, 4:59. INDICATIONS : Respiratory disease. MEDICAL HISTORY : None. SURGICAL HISTORY : None. ENCOUNTER: Subsequent ACUITY: 2 weeks PAIN SCORE: Non-responsive. LOCATION: Bilateral chest FINDINGS: A single view of the chest demonstrates tracheostomy in good position. Mild basilar airspace disease. No effusion or pneumothorax. CONCLUSION: 1. Mild basilar airspace disease similar to April 05. No effusion or pneumothorax. Magdy Shelley MD on April 08, 2017 at 5:53 Board Certified Radiologist. This report was verified electronically.
[2017-04-08] MEDS: AMANTADINE HCL 100 MG CAP PO SCH ×2 (06:01→12:18)
[2017-04-08] MEDS: CHLORHEXIDINE 0.12% (ORAL KIT) 15 ML CUP MT SCH ×2 (08:00→20:37)
[2017-04-08] MEDS: ENOXAPARIN SODIUM 30 MG/0.3 ML SYRINGE SQ SCH ×2 (08:58→20:33)
[2017-04-08] MEDS: FAMOTIDINE 20 MG TAB PO SCH ×2 (08:58→20:37)
[2017-04-08] MEDS: DOCUSATE SODIUM 50 MG/SENNA 8.6 MG TAB PO SCH ×2 (08:58→21:00)
[2017-04-08] MEDS: LACTULOSE SYRUP 20 GM/30 ML CUP PO SCH (08:58)
[2017-04-08] MEDS: MAGNESIUM HYDROXIDE SUSP 30 ML CUP PO SCH ×2 (08:58→21:00)
[2017-04-08] MEDS: LISINOPRIL 10 MG TAB PO SCH ×2 (08:59→20:37)
[2017-04-08] MEDS: INSULIN DETEMIR 100 UNITS/ML VIAL SQ SCH ×2 (08:59→20:36)
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
[2017-04-08] MEDS ORDERED: HALOPERIDOL LACTATE 5 MG/ML AMP IV PRN (10:30)
[2017-04-08 11:42] LABS: HEMATOCRIT 29.3 % (39.0-51.0); HEMOGLOBIN 9.8 GM/DL (13.0-17.0); MEAN CELL VOLUME 94.8 FL (80.0-100.0); MEAN CORPUSCULAR HEMOGLOBIN 31.9 PG (27.0-34.0); MEAN CORPUSCULAR HGB CONC 33.6 % (32.0-36.0); MEAN PLATELET VOLUME 9.2 FL (7.0-11.0); PLATELET COUNT 352 TH/MM3 (150-450); RED BLOOD COUNT 3.09 MIL/MM3 (4.50-5.90); RED CELL DISTRIBUTION WIDTH 12.8 % (11.6-17.2); WHITE BLOOD COUNT 8.3 TH/MM3 (4.0-11.0)
[2017-04-08 11:58] LABS: BICARBONATE 24.9 MEQ/L (21.0-32.0); CALCIUM 8.9 MG/DL (8.5-10.1); CREATININE 0.8 MG/DL (0.60-1.30)
[2017-04-08] MEDS: PROPRANOLOL HCL 20 MG TAB PO SCH ×3 (12:15→23:25)
[2017-04-08] MEDS: MORPHINE SULFATE 4 MG/ML INJ IV PUSH PRN (12:25)
[2017-04-08] MEDS: VANCOMYCIN INJ 1,000 MG in SODIUM CHLOR 0.9% 250 ML INJ 250 ML IV SCH (15:00)
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
[2017-04-09] VITALS (14 sets, daily range): BP systolic 109–148; BP diastolic 55–61; PULSE 62–96; RESP 14–24; TEMP 98.9–99.6; O2SAT 93–95
[2017-04-09] MEDS: HIGH DOSE INSULIN NOVOLIN REGULAR SUPPLEMENTAL SCALE SQ SCH ×7 (01:18→23:34)
[2017-04-09] MEDS: RESP: ACETYLCYSTEINE 20% 4 ML NEB NEB SCH ×4 (03:33→22:08)
[2017-04-09] MEDS: RESP: ALBUTEROL 2.5 MG/IPRATROPIUM 0.5 MG NEB (PRN) NEB ×2 (03:33→22:08)
[2017-04-09] MEDS: FREE WATER G-TUBE SCH ×6 (04:00→23:33)
[2017-04-09] MEDS: CHLORHEXIDINE GLUCONATE 2 % 1 PACK (2 CLOTHS) TOP SCH (04:00)
[2017-04-09] MEDS: MORPHINE SULFATE 4 MG/ML INJ IV PUSH PRN ×4 (04:22→23:20)
[2017-04-09] MEDS: PIPERACIL-TAZO 3.375 GM PREMIX 50 ML IV SCH ×2 (04:24→08:00)
[2017-04-09] MEDS: PROPRANOLOL HCL 20 MG TAB PO SCH ×4 (05:02→23:19)
[2017-04-09 05:10] LABS: HEMATOCRIT 27.5 % (39.0-51.0); HEMOGLOBIN 9.3 GM/DL (13.0-17.0); MEAN CELL VOLUME 92.6 FL (80.0-100.0); MEAN CORPUSCULAR HEMOGLOBIN 31.4 PG (27.0-34.0); MEAN PLATELET VOLUME 9.1 FL (7.0-11.0); PLATELET COUNT 392 TH/MM3 (150-450); RED BLOOD COUNT 2.97 MIL/MM3 (4.50-5.90); RED CELL DISTRIBUTION WIDTH 12.8 % (11.6-17.2); WHITE BLOOD COUNT 8.6 TH/MM3 (4.0-11.0)
[2017-04-09 05:34] LABS: BICARBONATE 26.3 MEQ/L (21.0-32.0); CALCIUM 8.7 MG/DL (8.5-10.1); CREATININE 0.68 MG/DL (0.60-1.30)
[2017-04-09] MEDS: AMANTADINE HCL 100 MG CAP PO SCH ×2 (06:45→12:16)
[2017-04-09] MEDS: LACTULOSE SYRUP 20 GM/30 ML CUP PO SCH (08:00)
[2017-04-09] MEDS: FAMOTIDINE 20 MG TAB PO SCH ×2 (08:00→20:12)
[2017-04-09] MEDS: CHLORHEXIDINE 0.12% (ORAL KIT) 15 ML CUP MT SCH ×2 (08:00→19:54)
[2017-04-09] MEDS: ENOXAPARIN SODIUM 30 MG/0.3 ML SYRINGE SQ SCH ×2 (08:00→20:13)
[2017-04-09] MEDS: MAGNESIUM HYDROXIDE SUSP 30 ML CUP PO SCH ×2 (08:00→20:14)
[2017-04-09] MEDS: INSULIN DETEMIR 100 UNITS/ML VIAL SQ SCH ×2 (08:01→20:14)
[2017-04-09] MEDS: LISINOPRIL 10 MG TAB PO SCH ×2 (08:01→20:12)
[2017-04-09] MEDS: POTASSIUM CHLOR 20 MEQ PREMIX 100 ML IV PRN ×2 (08:01→14:03)
[2017-04-09] MEDS: DOCUSATE SODIUM 50 MG/SENNA 8.6 MG TAB PO SCH ×2 (08:01→20:14)
[2017-04-09] MEDS: REMOVE OLD PATCH T-DERMAL SCH (10:00)
[2017-04-09] MEDS: cefTRIAXone INJ 1,000 MG in SODIUM CHLORIDE 0.9% INJ 100 ML IV SCH (10:42)
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
[2017-04-09] MEDS: VANCOMYCIN INJ 1,000 MG in SODIUM CHLOR 0.9% 250 ML INJ 250 ML IV SCH (14:03)
[2017-04-09] MEDS: cloNIDine HCL 0.1 MG/24 HR PATCH T-DERMAL SCH (14:08)
[2017-04-10] VITALS (14 sets, daily range): BP systolic 127–154; BP diastolic 59–81; PULSE 64–88; RESP 17–26; TEMP 99.1–100.2; O2SAT 92–97
[2017-04-10] MEDS: CHLORHEXIDINE GLUCONATE 2 % 1 PACK (2 CLOTHS) TOP SCH (04:00)
[2017-04-10] MEDS: FREE WATER G-TUBE SCH ×5 (04:00→20:00)
[2017-04-10] MEDS: HIGH DOSE INSULIN NOVOLIN REGULAR SUPPLEMENTAL SCALE SQ SCH ×5 (04:00→20:00)
[2017-04-10] MEDS: RESP: ACETYLCYSTEINE 20% 4 ML NEB NEB SCH ×2 (04:00→10:00)
[2017-04-10 05:36] LABS: HEMATOCRIT 25.9 % (39.0-51.0); HEMOGLOBIN 8.8 GM/DL (13.0-17.0); MEAN CELL VOLUME 92.7 FL (80.0-100.0); MEAN CORPUSCULAR HEMOGLOBIN 31.4 PG (27.0-34.0); MEAN CORPUSCULAR HGB CONC 33.9 % (32.0-36.0); MEAN PLATELET VOLUME 8.8 FL (7.0-11.0); PLATELET COUNT 363 TH/MM3 (150-450); RED CELL DISTRIBUTION WIDTH 12.9 % (11.6-17.2); WHITE BLOOD COUNT 7.9 TH/MM3 (4.0-11.0)
[2017-04-10] MEDS: PROPRANOLOL HCL 20 MG TAB PO SCH ×3 (05:56→17:33)
[2017-04-10] MEDS: AMANTADINE HCL 100 MG CAP PO SCH ×2 (06:01→12:00)
[2017-04-10 06:02] LABS: BICARBONATE 26.8 MEQ/L (21.0-32.0); CREATININE 0.7 MG/DL (0.60-1.30)
[2017-04-10] MEDS: CHLORHEXIDINE 0.12% (ORAL KIT) 15 ML CUP MT SCH ×2 (08:00→20:35)
[2017-04-10] MEDS: ENOXAPARIN SODIUM 30 MG/0.3 ML SYRINGE SQ SCH ×2 (08:00→20:35)
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
[2017-04-10] MEDS: FAMOTIDINE 20 MG TAB PO SCH ×2 (08:23→20:36)
[2017-04-10] MEDS: LACTULOSE SYRUP 20 GM/30 ML CUP PO SCH (08:23)
[2017-04-10] MEDS: LISINOPRIL 10 MG TAB PO SCH ×2 (08:23→20:36)
[2017-04-10] MEDS: MAGNESIUM HYDROXIDE SUSP 30 ML CUP PO SCH ×2 (08:23→20:36)
[2017-04-10] MEDS: DOCUSATE SODIUM 50 MG/SENNA 8.6 MG TAB PO SCH ×2 (08:23→20:36)
[2017-04-10] MEDS: INSULIN DETEMIR 100 UNITS/ML VIAL SQ SCH ×2 (08:41→20:36)
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
[2017-04-10] MEDS ORDERED: Vancomycin Consult Pharmacy 1 EA OTHER SCH (09:45)
[2017-04-10] MEDS: MORPHINE SULFATE 4 MG/ML INJ IV PUSH PRN ×2 (10:52→20:42)
[2017-04-10] MEDS: cefTRIAXone INJ 1,000 MG in SODIUM CHLORIDE 0.9% INJ 100 ML IV SCH (12:00)
[2017-04-10] MEDS ORDERED: Free Water G-TUBE (14:57)
[2017-04-10] MEDS: VANCOMYCIN INJ 2,000 MG in SODIUM CHLORID 0.9% 500 ML INJ 500 ML IV SCH (14:57)
[2017-04-10] MEDS ORDERED: LEVS0.123 PO (14:57)
[2017-04-10] MEDS ORDERED: NOVORP2 SQ (14:57)
[2017-04-10] MEDS ORDERED: MORP4INJ3 IV PUSH (14:57)
[2017-04-10] MEDS ORDERED: ENOX30P SQ (14:57)
[2017-04-10] MEDS ORDERED: Amantadine PO (14:57)
[2017-04-10] MEDS ORDERED: CLON.1T T-DERMAL (14:57)
[2017-04-10] MEDS ORDERED: MAGN30S PO (14:57)
[2017-04-10] MEDS ORDERED: PROP20TA3 PO (14:57)
[2017-04-10] MEDS ORDERED: Lactulose Liq PO (14:57)
[2017-04-10] MEDS ORDERED: HALO5P IV (14:57)
[2017-04-10] MEDS ORDERED: LEVEMIR SQ (14:57)
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
[2017-04-11] VITALS (15 sets, daily range): BP systolic 119–185; BP diastolic 62–83; PULSE 56–80; RESP 12–23; TEMP 97.5–99.4; O2SAT 91–95
[2017-04-11] MEDS: VANCOMYCIN INJ 2,000 MG in SODIUM CHLORID 0.9% 500 ML INJ 500 ML IV SCH ×2 (00:12→13:44)
[2017-04-11] MEDS: PROPRANOLOL HCL 20 MG TAB PO SCH ×5 (00:13→17:04)
[2017-04-11] MEDS: MORPHINE SULFATE 4 MG/ML INJ IV PUSH PRN ×3 (00:13→12:20)
[2017-04-11] MEDS: RESP: ALBUTEROL 2.5 MG/IPRATROPIUM 0.5 MG NEB (PRN) NEB (00:55)
[2017-04-11] MEDS: FREE WATER G-TUBE SCH ×6 (04:00→20:00)
[2017-04-11] MEDS: HIGH DOSE INSULIN NOVOLIN REGULAR SUPPLEMENTAL SCALE SQ SCH ×6 (04:00→20:10)
[2017-04-11] MEDS: CHLORHEXIDINE GLUCONATE 2 % 1 PACK (2 CLOTHS) TOP SCH (04:00)
[2017-04-11 05:19] LABS: HEMATOCRIT 26.6 % (39.0-51.0); HEMOGLOBIN 8.9 GM/DL (13.0-17.0); MEAN CELL VOLUME 92.6 FL (80.0-100.0); MEAN CORPUSCULAR HEMOGLOBIN 31.1 PG (27.0-34.0); MEAN CORPUSCULAR HGB CONC 33.6 % (32.0-36.0); MEAN PLATELET VOLUME 8.9 FL (7.0-11.0); PLATELET COUNT 422 TH/MM3 (150-450); RED BLOOD COUNT 2.88 MIL/MM3 (4.50-5.90); RED CELL DISTRIBUTION WIDTH 12.8 % (11.6-17.2); WHITE BLOOD COUNT 7.5 TH/MM3 (4.0-11.0)
[2017-04-11 05:40] LABS: BICARBONATE 28.9 MEQ/L (21.0-32.0); CALCIUM 8.7 MG/DL (8.5-10.1); CREATININE 0.71 MG/DL (0.60-1.30)
[2017-04-11] MEDS: AMANTADINE HCL 100 MG CAP PO SCH ×2 (06:04→12:49)
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
[2017-04-11] MEDS: CHLORHEXIDINE 0.12% (ORAL KIT) 15 ML CUP MT SCH ×2 (08:23→20:00)
[2017-04-11] MEDS: LACTULOSE SYRUP 20 GM/30 ML CUP PO SCH (08:24)
[2017-04-11] MEDS: ENOXAPARIN SODIUM 30 MG/0.3 ML SYRINGE SQ SCH ×2 (08:24→20:10)
[2017-04-11] MEDS: MAGNESIUM HYDROXIDE SUSP 30 ML CUP PO SCH ×2 (08:24→21:00)
[2017-04-11] MEDS: LISINOPRIL 10 MG TAB PO SCH ×2 (08:25→20:10)
[2017-04-11] MEDS: FAMOTIDINE 20 MG TAB PO SCH ×2 (08:25→20:10)
[2017-04-11] MEDS: DOCUSATE SODIUM 50 MG/SENNA 8.6 MG TAB PO SCH ×2 (08:25→20:10)
[2017-04-11] MEDS: cefTRIAXone INJ 1,000 MG in SODIUM CHLORIDE 0.9% INJ 100 ML IV SCH (08:26)
[2017-04-11] MEDS: INSULIN DETEMIR 100 UNITS/ML VIAL SQ SCH ×2 (08:26→21:16)
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
[2017-04-12] VITALS (14 sets, daily range): BP systolic 158–185; BP diastolic 70–96; PULSE 58–86; RESP 14–29; TEMP 98–98.7; O2SAT 94–98
[2017-04-12] MEDS: PROPRANOLOL HCL 20 MG TAB PO SCH ×2 (00:09→06:01)
[2017-04-12] MEDS: HIGH DOSE INSULIN NOVOLIN REGULAR SUPPLEMENTAL SCALE SQ SCH ×6 (00:10→22:32)
[2017-04-12] MEDS: VANCOMYCIN INJ 2,000 MG in SODIUM CHLORID 0.9% 500 ML INJ 500 ML IV SCH (00:39)
[2017-04-12] MEDS ORDERED: PHARMACY ORDERED LAB ONE (00:45)
[2017-04-12] MEDS: CHLORHEXIDINE GLUCONATE 2 % 1 PACK (2 CLOTHS) TOP SCH (04:00)
[2017-04-12] MEDS: FREE WATER G-TUBE SCH ×6 (04:00→20:00)
[2017-04-12] MEDS: AMANTADINE HCL 100 MG CAP PO SCH ×2 (06:01→12:59)
[2017-04-12 07:09] LABS: HEMATOCRIT 27.9 % (39.0-51.0); HEMOGLOBIN 9.4 GM/DL (13.0-17.0); MEAN CELL VOLUME 92.8 FL (80.0-100.0); MEAN CORPUSCULAR HEMOGLOBIN 31.1 PG (27.0-34.0); MEAN CORPUSCULAR HGB CONC 33.6 % (32.0-36.0); PLATELET COUNT 460 TH/MM3 (150-450); RED BLOOD COUNT 3.01 MIL/MM3 (4.50-5.90)
[2017-04-12 07:16] LABS: CALCIUM 8.9 MG/DL (8.5-10.1); CREATININE 0.59 MG/DL (0.60-1.30)
[2017-04-12] MEDS: CHLORHEXIDINE 0.12% (ORAL KIT) 15 ML CUP MT SCH ×2 (08:26→20:00)
[2017-04-12] MEDS: ENOXAPARIN SODIUM 30 MG/0.3 ML SYRINGE SQ SCH ×2 (08:26→22:33)
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
[2017-04-12] MEDS: LACTULOSE SYRUP 20 GM/30 ML CUP PO SCH (09:00)
[2017-04-12] MEDS: MAGNESIUM HYDROXIDE SUSP 30 ML CUP PO SCH ×2 (09:00→22:33)
[2017-04-12] MEDS: DOCUSATE SODIUM 50 MG/SENNA 8.6 MG TAB PO SCH ×2 (09:00→22:34)
[2017-04-12] MEDS: SODIUM CHLORIDE 0.9% FLUSH 10 ML FLUSH IV FLUSH PRN (11:46)
[2017-04-12] MEDS: FAMOTIDINE 20 MG TAB PO SCH ×2 (11:47→22:34)
[2017-04-12] MEDS: LISINOPRIL 10 MG TAB PO SCH ×2 (11:47→22:34)
[2017-04-12] MEDS: INSULIN DETEMIR 100 UNITS/ML VIAL SQ SCH ×2 (11:47→22:32)
[2017-04-12] MEDS: cefTRIAXone INJ 1,000 MG in SODIUM CHLORIDE 0.9% INJ 100 ML IV SCH (11:48)
[2017-04-12] MEDS: METOPROLOL TARTRATE 50 MG TAB PO SCH ×2 (11:52→22:35)
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
[2017-04-12] MEDS: oxyCODONE/ACETAMINOPHEN 5 MG/325 MG TAB PO PRN (22:31)
[2017-04-12] MEDS: HYOSCYAMINE 0.125 MG TAB PO PRN (22:33)
[2017-04-12] MEDS: RESP: ALBUTEROL 2.5 MG/IPRATROPIUM 0.5 MG NEB (PRN) NEB (23:19)
[2017-04-13] MEDS: HIGH DOSE INSULIN NOVOLIN REGULAR SUPPLEMENTAL SCALE SQ SCH ×5 (01:45→16:45)
[2017-04-13 04:00] VITALS: BP 148/70; PULSE 81; RESP 20; TEMP 98.5; O2SAT 92
[2017-04-13] MEDS: FREE WATER G-TUBE SCH ×6 (04:00→23:44)
[2017-04-13] MEDS: CHLORHEXIDINE GLUCONATE 2 % 1 PACK (2 CLOTHS) TOP SCH (04:00)
[2017-04-13] MEDS: VANCOMYCIN INJ 1,500 MG in SODIUM CHLORID 0.9% 500 ML INJ 500 ML IV SCH ×2 (04:07→12:36)
[2017-04-13] MEDS: oxyCODONE/ACETAMINOPHEN 5 MG/325 MG TAB PO PRN ×3 (06:29→17:54)
[2017-04-13] MEDS: HYOSCYAMINE 0.125 MG TAB PO PRN ×2 (06:29→17:54)
[2017-04-13] MEDS: AMANTADINE HCL 100 MG CAP PO SCH ×2 (06:31→12:34)
--- NOTE | 2017-04-13 06:58 | RADRPT ---
EXAM DATE/TIME: 04/13/2017 06:39 [place] COMPARISON: CHEST SINGLE AP, April 08, 2017, 3:43. INDICATIONS : Short of breath MEDICAL HISTORY : intracranial hemorrhage SURGICAL HISTORY : tracheostomy ENCOUNTER: Subsequent ACUITY: 2 weeks PAIN SCORE: Non-responsive. LOCATION: Bilateral chest FINDINGS: Clear lungs. Degenerative changes of the spine. Tracheostomy tube. Cardiomegaly. CONCLUSION: No acute disease. Wing Mckeon MD on April 13, 2017 at 6:56 Board Certified Radiologist. This report was verified electronically.
[2017-04-13 07:07] LABS: HEMATOCRIT 28.8 % (39.0-51.0); HEMOGLOBIN 9.7 GM/DL (13.0-17.0); MEAN CELL VOLUME 91.3 FL (80.0-100.0); MEAN CORPUSCULAR HEMOGLOBIN 30.8 PG (27.0-34.0); MEAN CORPUSCULAR HGB CONC 33.7 % (32.0-36.0); MEAN PLATELET VOLUME 8.5 FL (7.0-11.0); PLATELET COUNT 479 TH/MM3 (150-450); RED BLOOD COUNT 3.16 MIL/MM3 (4.50-5.90); RED CELL DISTRIBUTION WIDTH 13.4 % (11.6-17.2); WHITE BLOOD COUNT 6.7 TH/MM3 (4.0-11.0)
[2017-04-13 07:27] LABS: CALCIUM 8.8 MG/DL (8.5-10.1); CREATININE 0.6 MG/DL (0.60-1.30)
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
[2017-04-13] MEDS: INSULIN DETEMIR 100 UNITS/ML VIAL SQ SCH ×2 (09:00→23:44)
[2017-04-13] MEDS: MAGNESIUM HYDROXIDE SUSP 30 ML CUP PO SCH ×2 (10:02→23:44)
[2017-04-13] MEDS: LACTULOSE SYRUP 20 GM/30 ML CUP PO SCH (10:02)
[2017-04-13] MEDS: ENOXAPARIN SODIUM 30 MG/0.3 ML SYRINGE SQ SCH ×2 (10:03→23:42)
[2017-04-13] MEDS: FAMOTIDINE 20 MG TAB PO SCH ×2 (10:06→23:42)
[2017-04-13] MEDS: CHLORHEXIDINE GLUCONATE 0.12% 15 ML CUP SWISH-SPIT SCH ×2 (10:07→23:44)
[2017-04-13] MEDS: METOPROLOL TARTRATE 50 MG TAB PO SCH ×2 (10:07→23:43)
[2017-04-13] MEDS: cefTRIAXone INJ 1,000 MG in SODIUM CHLORIDE 0.9% INJ 100 ML IV SCH (10:08)
[2017-04-13] MEDS: LISINOPRIL 20 MG TAB PO SCH ×2 (10:09→23:43)
[2017-04-13] MEDS: DOCUSATE SODIUM 50 MG/SENNA 8.6 MG TAB PO SCH ×2 (10:09→23:42)
[2017-04-13 10:20] VITALS: O2SAT 94
[2017-04-13 12:00] VITALS: BP 123/74; PULSE 81; RESP 18; TEMP 98.5; O2SAT 98
[2017-04-13 16:00] VITALS: BP 128/72; PULSE 84; RESP 18; TEMP 98.5; O2SAT 98
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
[2017-04-13] MEDS: INSULIN NovoLIN REGULAR SUPPLEMENTAL SCALE SQ SCH ×2 (17:00→23:43)
[2017-04-13] MEDS ORDERED: LISI-515 PO (17:16)
[2017-04-13] MEDS ORDERED: Chlorhexidine 0.12% Liq SWISH-SPIT (17:16)
[2017-04-13] MEDS ORDERED: OXYC1TAB63 PO (17:16)
[2017-04-13 21:13] VITALS: O2SAT 94
[2017-04-13 21:25] VITALS: BP 147/76; PULSE 87; RESP 19; TEMP 98.2; O2SAT 95
[2017-04-14] MEDS: VANCOMYCIN INJ 1,500 MG in SODIUM CHLORID 0.9% 500 ML INJ 500 ML IV SCH ×2 (00:48→13:23)
[2017-04-14 01:05] VITALS: BP 127/79; PULSE 79; RESP 19; TEMP 98.4; O2SAT 97
[2017-04-14] MEDS: INSULIN NovoLIN REGULAR SUPPLEMENTAL SCALE SQ SCH ×4 (03:21→17:00)
[2017-04-14] MEDS: FREE WATER G-TUBE SCH ×5 (04:23→16:00)
[2017-04-14 05:24] VITALS: BP 158/75; PULSE 89; RESP 19; TEMP 99; O2SAT 94
[2017-04-14] MEDS: AMANTADINE HCL 100 MG CAP PO SCH ×2 (06:04→14:10)
[2017-04-14 07:14] LABS: HEMATOCRIT 29.1 % (39.0-51.0); HEMOGLOBIN 9.9 GM/DL (13.0-17.0); MEAN CORPUSCULAR HEMOGLOBIN 31.3 PG (27.0-34.0); MEAN PLATELET VOLUME 7.9 FL (7.0-11.0); PLATELET COUNT 487 TH/MM3 (150-450); RED BLOOD COUNT 3.16 MIL/MM3 (4.50-5.90); RED CELL DISTRIBUTION WIDTH 13.2 % (11.6-17.2); WHITE BLOOD COUNT 7.9 TH/MM3 (4.0-11.0)
[2017-04-14 07:39] LABS: BICARBONATE 26.8 MEQ/L (21.0-32.0); CALCIUM 8.8 MG/DL (8.5-10.1); CREATININE 0.67 MG/DL (0.60-1.30)
[2017-04-14 08:00] VITALS: BP 135/72; PULSE 92; RESP 19; TEMP 98.8; O2SAT 96
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
[2017-04-14] MEDS: LACTULOSE SYRUP 20 GM/30 ML CUP PO SCH (09:00)
[2017-04-14] MEDS ORDERED: metFORMIN HCL 500 MG TAB PO SCH (09:00)
[2017-04-14] MEDS: INSULIN DETEMIR 100 UNITS/ML VIAL SQ SCH (09:00)
[2017-04-14] MEDS: MAGNESIUM HYDROXIDE SUSP 30 ML CUP PO SCH (09:00)
[2017-04-14] MEDS ORDERED: cefTRIAXone INJ 1,000 MG in SODIUM CHLORIDE 0.9% INJ 100 ML IV SCH (10:00)
[2017-04-14] MEDS: ENOXAPARIN SODIUM 30 MG/0.3 ML SYRINGE SQ SCH (10:00)
[2017-04-14] MEDS: DOCUSATE SODIUM 50 MG/SENNA 8.6 MG TAB PO SCH (10:04)
[2017-04-14] MEDS: LISINOPRIL 20 MG TAB PO SCH (10:04)
[2017-04-14] MEDS: FAMOTIDINE 20 MG TAB PO SCH (10:04)
[2017-04-14] MEDS: METOPROLOL TARTRATE 50 MG TAB PO SCH (10:04)
[2017-04-14] MEDS: CHLORHEXIDINE GLUCONATE 0.12% 15 ML CUP SWISH-SPIT SCH (10:06)
[2017-04-14 10:07] VITALS: O2SAT 95
[2017-04-14] MEDS ORDERED: PHARMACY ORDERED LAB ONE (11:45)
[2017-04-14 12:42] VITALS: BP 168/79; PULSE 80; RESP 18; TEMP 98.6; O2SAT 95
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
[2017-04-14] MEDS: oxyCODONE/ACETAMINOPHEN 5 MG/325 MG TAB PO PRN (14:10)
[2017-04-14] MEDS ORDERED: CEFT1INJ2 IV (15:16)
[2017-04-14] MEDS ORDERED: VANC1000P IV (15:16)
[2017-04-16] MEDS ORDERED: PHARMACY ORDERED LAB ONE (11:45)
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
== END 2017-04-14 17:00 | DRG 3 ==
LOC: NEPE 07:50 → NEDA 08:29 → N03B 10:15 → N05A 04-12 17:36
PROVIDERS: ADMIT Surgery; ATTEND Surgery
PROC: 009630Z Drainage of Cerebral Ventricle with Drainage Device, Percutaneous Approach (ICD-10-PCS; 2017-03-25)
PROC: 5A1955Z Respiratory Ventilation, Greater than 96 Consecutive Hours (ICD-10-PCS; 2017-03-25)
PROC: 05H633Z Insertion of Infusion Device into Left Subclavian Vein, Percutaneous Approach (ICD-10-PCS; 2017-03-25)
PROC: 6A550Z2 Pheresis of Platelets, Single (ICD-10-PCS; 2017-03-25)
PROC: 0T9B70Z Drainage of Bladder with Drainage Device, Via Natural or Artificial Opening (ICD-10-PCS; 2017-03-31)
PROC: 0DH63UZ Insertion of Feeding Device into Stomach, Percutaneous Approach (ICD-10-PCS; 2017-04-06)
PROC: 0B113F4 Bypass Trachea to Cutaneous with Tracheostomy Device, Percutaneous Approach (ICD-10-PCS; principal; 2017-04-07)
PROC: 0BH17EZ Insertion of Endotracheal Airway into Trachea, Via Natural or Artificial Opening (ICD-10-PCS; 2017-04-07)
PROC: 0BJ08ZZ Inspection of Tracheobronchial Tree, Via Natural or Artificial Opening Endoscopic (ICD-10-PCS; 2017-04-07)
DX: S06.5X9A Traumatic subdural hemorrhage with loss of consciousness of unspecified duration, initial encounter (principal); J69.0 Pneumonitis due to inhalation of food and vomit; G93.40 Encephalopathy, unspecified; J96.21 Acute and chronic respiratory failure with hypoxia; R13.10 Dysphagia, unspecified; E87.1 Hypo-osmolality and hyponatremia; E11.51 Type 2 diabetes mellitus with diabetic peripheral angiopathy without gangrene; E11.65 Type 2 diabetes mellitus with hyperglycemia; S02.40FA Zygomatic fracture, left side, initial encounter for closed fracture; Z99.11 Dependence on respirator [ventilator] status; S06.2X9A Diffuse traumatic brain injury with loss of consciousness of unspecified duration, initial encounter; S06.6X9A Traumatic subarachnoid hemorrhage with loss of consciousness of unspecified duration, initial encounter; S02.109A Fracture of base of skull, unspecified side, initial encounter for closed fracture; I10 Essential (primary) hypertension; Z79.02 Long term (current) use of antithrombotics/antiplatelets; Y04.0XXA Assault by unarmed brawl or fight, initial encounter; Y93.89 Activity, other specified; Y92.9 Unspecified place or not applicable; E78.00 Pure hypercholesterolemia, unspecified; E78.5 Hyperlipidemia, unspecified; E87.6 Hypokalemia; E66.9 Obesity, unspecified; Z87.891 Personal history of nicotine dependence; F01.50 Vascular dementia, unspecified severity, without behavioral disturbance, psychotic disturbance, mood disturbance, and anxiety; K44.9 Diaphragmatic hernia without obstruction or gangrene
CPT/HCPCS: 31500; 31600; 31624; 36430; 36556; 36600; 36620; 61210; 70450; 70486; 71045; 72125; 72170; 80048; 80053; 80202; 82805; 82948; 83735; 83930; 84100; 84132; 84295; 85025; 85027; 85610; 85730; 86403; 86900; 86901; 87040; 87070; 87077; 87147; 87184; 87185; 87186; 87205; 90686; 90732; 93005; 94002; 94003; 94640; 94664; 94770; A7521; C9113; J0295; J0360; J0690; J0696; J1650; J1940; J1953; J2250; J2270; J2370; J2543; J3010; J3370; J3475; J3480; J7030; J7040; J7050; J7608; P9035; Q2038

== ENCOUNTER 2017-07-03 10:59 | Emergency (ER) | payer OTHER ==
[~2017-07-03] VITALS: Ht 172.7 cm; Wt 100.0 kg
[~2017-07-03 10:59] MED LIST: Amantadine PO; BACL10TA PO; COMMODE 3-IN-11 MIS; DILT30TA PO; HOSP BED1; LEVEMIR SQ; METO50TA PO; PANT40TA3 PO; WHEEMIS3
[2017-07-03 11:06] VITALS: BP 96/52; PULSE 65; RESP 20; TEMP 96.8; O2SAT 97
[2017-07-03] MEDS ORDERED: BACL10TA PO (11:30)
[2017-07-03] MEDS ORDERED: INSU100V3 SQ (11:30)
[2017-07-03] MEDS ORDERED: HUMU70IN SQ (11:31)
--- NOTE | 2017-07-03 11:38 | PD ---
Physical Exam Time Seen by Provider: 11:35 Narrative 46-year-old male with history of traumatic brain injury March 25, 2017, recently released from proximal rehab June 23, 2017 with trachea reversal 1 week ago, presents emergency department for evaluation of what his daughter believes his chest pain. The patient is slow to respond and does not answer my questions completely. He does answer no when asked if he is in pain. The daughter tells me that since the patient being home 1 week he has been eating solid foods when prior he was eating pured. Since yesterday he has developed a cough that has worsened throughout the night and he seems to having more difficult time breathing. She tells me that he was clenching his chest this morning while he was coughing and she is concerned that he may have been having chest pain. She tells me right now he seems at his baseline and without distress, but she still wanted him to "get checked out." GENERAL: Well-nourished male patient, sitting up in bed, in no acute distress. SKIN: Focused skin assessment warm/dry. Healed trachea site in the anterior neck. HEAD: Atraumatic. Normocephalic. EYES: Pupils equal and round. No scleral icterus. No injection or drainage. ENT: No nasal bleeding or discharge. Mucous membranes pink and moist. NECK: Trachea midline. No JVD. CARDIOVASCULAR: Regular rate and rhythm. No murmur appreciated. RESPIRATORY: No accessory muscle use. Clear to auscultation. Breath sounds equal bilaterally. GASTROINTESTINAL: Abdomen soft, non-tender, nondistended. Hepatic and splenic margins not palpable. MUSCULOSKELETAL: No obvious deformities. No clubbing. No cyanosis. No edema. NEUROLOGICAL: Awake and alert. Patient does move his extremities but slowly and with gross movement. He has clear speech but limited answers. PSYCHIATRIC: Flat affect Data Data Last Documented VS Vital Signs Date Time Temp Pulse Resp B/P (MAP) Pulse Ox O2 Delivery O2 Flow Rate FiO2 07/03/17 12:22 67 19 123/82 (96) 99 Room Air 07/03/17 11:06 96.8 Orders Orders Complete Blood Count With Diff (07/03/17 11:34) Basic Metabolic Panel (Bmp) (07/03/17 11:34) Act Partial Throm Time (Ptt) (07/03/17 11:34) Prothrombin Time / Inr (Pt) (07/03/17 11:34) Ckmb (Isoenzyme) Profile (07/03/17 11:34) Troponin I (07/03/17 11:34) Iv Access Insert/Monitor (07/03/17 11:34) Electrocardiogram (07/03/17 11:34) Ecg Monitoring (07/03/17 11:34) Oximetry (07/03/17 11:34) Oxygen Administration (07/03/17 11:34) Chest, Pa & Lat (07/03/17 11:34) Sodium Chloride 0.9% Flush (Ns Flush) (07/03/17 11:45) Sodium Chlor 0.9% 1000 Ml Inj (Ns 1000 M (07/03/17 11:45) Ed Discharge Order (07/03/17 13:00) Labs Laboratory Tests Test 07/03/17 12:05 White Blood Count 4.9 TH/MM3 Red Blood Count 3.86 MIL/MM3 Hemoglobin 11.8 GM/DL Hematocrit 35.2 % Mean Corpuscular Volume 91.2 FL Mean Corpuscular Hemoglobin 30.5 PG Mean Corpuscular Hemoglobin Concent 33.5 % Red Cell Distribution Width 16.2 % Platelet Count 234 TH/MM3 Mean Platelet Volume 7.8 FL Neutrophils (%) (Auto) 66.6 % Lymphocytes (%) (Auto) 21.5 % Monocytes (%) (Auto) 9.4 % Eosinophils (%) (Auto) 2.1 % Basophils (%) (Auto) 0.4 % Neutrophils # (Auto) 3.3 TH/MM3 Lymphocytes # (Auto) 1.1 TH/MM3 Monocytes # (Auto) 0.5 TH/MM3 Eosinophils # (Auto) 0.1 TH/MM3 Basophils # (Auto) 0.0 TH/MM3 CBC Comment DIFF FINAL Differential Comment Prothrombin Time 10.6 SEC Prothromb Time International Ratio 1.0 RATIO Activated Partial Thromboplast Time 26.4 SEC Blood Urea Nitrogen 5 MG/DL Creatinine 0.76 MG/DL Random Glucose 160 MG/DL Calcium Level 8.9 MG/DL Sodium Level 140 MEQ/L Potassium Level 3.7 MEQ/L Chloride Level 105 MEQ/L Carbon Dioxide Level 26.8 MEQ/L Anion Gap 8 MEQ/L Estimat Glomerular Filtration Rate 110 ML/MIN Total Creatine Kinase 30 U/L Troponin I LESS THAN 0.02 NG/ML [facility] Medical Record Reviewed: Yes Supervised Visit with POONAM: No Diagnosis Primary Impression: Coughing Additional Impression: Painful cough Referrals: Primary Care Physician Patient Instructions: Acute Cough (ED), General Instructions Additional Instruction: Follow-up with a primary care provider Continue all medication as already prescribed Return immediately with acute worsening symptoms Med/Other Pt SpecificInfo: No Change to Meds Disposition: 01 DISCHARGE HOME Condition: Stable Mecca Talley July 03, 2017 11:38
[2017-07-03] MEDS ORDERED: SODIUM CHLOR 0.9% 1000 ML INJ 1,000 ML IV ONE (11:45)
[2017-07-03] MEDS ORDERED: SODIUM CHLORIDE 0.9% FLUSH 10 ML FLUSH IVF PRN (11:45)
--- NOTE | 2017-07-03 12:06 | RADRPT ---
EXAM DATE/TIME: 07/03/2017 11:55 [place] COMPARISON: No previous studies available for comparison. INDICATIONS : Coughing and short of breath for 2 or 3 days, pain left anterior chest, recently discharged from [facility] rehab MEDICAL HISTORY : Hypertension. traumatic brain injury, diabetic SURGICAL HISTORY : tracheostomy ENCOUNTER: Initial ACUITY: 3 days PAIN SCORE: Non-responsive. LOCATION: Bilateral chest FINDINGS: PA and lateral views of the chest demonstrate the lungs to be symmetrically aerated without evidence of mass, infiltrate or effusion. The cardiomediastinal contours are unremarkable. Osseous structure s are intact. CONCLUSION: Normal examination for a patient of this age. Joon Rosado MD on July 03, 2017 at 12:04 Board Certified Radiologist. This report was verified electronically.
[2017-07-03 12:22] VITALS: BP 123/82; PULSE 67; RESP 19; O2SAT 99
[2017-07-03 12:22] LABS: AUTOMATED NEUTROPHIL # 3.3 TH/MM3 (1.8-7.7); BASOPHIL % 0.4 % (0.0-2.0); EOSINOPHIL # 0.1 TH/MM3 (0-0.4); EOSINOPHIL % 2.1 % (0.0-4.0); HEMATOCRIT 35.2 % (39.0-51.0); HEMOGLOBIN 11.8 GM/DL (13.0-17.0); LYMPH % 21.5 % (9.0-44.0); LYMPHOCYTE # 1.1 TH/MM3 (1.0-4.8); MEAN CELL VOLUME 91.2 FL (80.0-100.0); MEAN CORPUSCULAR HEMOGLOBIN 30.5 PG (27.0-34.0); MEAN CORPUSCULAR HGB CONC 33.5 % (32.0-36.0); MEAN PLATELET VOLUME 7.8 FL (7.0-11.0); MONO % 9.4 % (0.0-8.0); MONOCYTE # 0.5 TH/MM3 (0-0.9); NEUT % 66.6 % (16.0-70.0); PLATELET COUNT 234 TH/MM3 (150-450); RED BLOOD COUNT 3.86 MIL/MM3 (4.50-5.90); RED CELL DISTRIBUTION WIDTH 16.2 % (11.6-17.2); WHITE BLOOD COUNT 4.9 TH/MM3 (4.0-11.0)
[2017-07-03 12:31] LABS: PROTHROMBIN TIME - PATIENT 10.6 SEC (9.8-11.6)
[2017-07-03 12:55] LABS: BLOOD UREA NITROGEN 5 MG/DL (7-18); CREATININE 0.76 MG/DL (0.60-1.30); GLOMERULAR FILTRATION RATE 110 ML/MIN (>89)
[2017-07-03 12:56] LABS: BICARBONATE 26.8 MEQ/L (21.0-32.0); CALCIUM 8.9 MG/DL (8.5-10.1); CHLORIDE 105 MEQ/L (98-107); GLUCOSE,RANDOM 160 MG/DL (74-106); SODIUM (NA) 140 MEQ/L (136-145); TROPONIN I LESS THAN 0.02 NG/ML (0.02-0.05)
--- NOTE | 2017-07-03 13:06 | PD ---
Data Data Last Documented VS Vital Signs Date Time Temp Pulse Resp B/P (MAP) Pulse Ox O2 Delivery O2 Flow Rate FiO2 07/03/17 12:22 67 19 123/82 (96) 99 Room Air 07/03/17 11:06 96.8 Orders Orders Complete Blood Count With Diff (07/03/17 11:34) Basic Metabolic Panel (Bmp) (07/03/17 11:34) Act Partial Throm Time (Ptt) (07/03/17 11:34) Prothrombin Time / Inr (Pt) (07/03/17 11:34) Ckmb (Isoenzyme) Profile (07/03/17 11:34) Troponin I (07/03/17 11:34) Iv Access Insert/Monitor (07/03/17 11:34) Electrocardiogram (07/03/17 11:34) Ecg Monitoring (07/03/17 11:34) Oximetry (07/03/17 11:34) Oxygen Administration (07/03/17 11:34) Chest, Pa & Lat (07/03/17 11:34) Sodium Chloride 0.9% Flush (Ns Flush) (07/03/17 11:45) Sodium Chlor 0.9% 1000 Ml Inj (Ns 1000 M (07/03/17 11:45) Ed Discharge Order (07/03/17 13:00) Labs Laboratory Tests Test 07/03/17 12:05 White Blood Count 4.9 TH/MM3 Red Blood Count 3.86 MIL/MM3 Hemoglobin 11.8 GM/DL Hematocrit 35.2 % Mean Corpuscular Volume 91.2 FL Mean Corpuscular Hemoglobin 30.5 PG Mean Corpuscular Hemoglobin Concent 33.5 % Red Cell Distribution Width 16.2 % Platelet Count 234 TH/MM3 Mean Platelet Volume 7.8 FL Neutrophils (%) (Auto) 66.6 % Lymphocytes (%) (Auto) 21.5 % Monocytes (%) (Auto) 9.4 % Eosinophils (%) (Auto) 2.1 % Basophils (%) (Auto) 0.4 % Neutrophils # (Auto) 3.3 TH/MM3 Lymphocytes # (Auto) 1.1 TH/MM3 Monocytes # (Auto) 0.5 TH/MM3 Eosinophils # (Auto) 0.1 TH/MM3 Basophils # (Auto) 0.0 TH/MM3 CBC Comment DIFF FINAL Differential Comment Prothrombin Time 10.6 SEC Prothromb Time International Ratio 1.0 RATIO Activated Partial Thromboplast Time 26.4 SEC Blood Urea Nitrogen 5 MG/DL Creatinine 0.76 MG/DL Random Glucose 160 MG/DL Calcium Level 8.9 MG/DL Sodium Level 140 MEQ/L Potassium Level 3.7 MEQ/L Chloride Level 105 MEQ/L Carbon Dioxide Level 26.8 MEQ/L Anion Gap 8 MEQ/L Estimat Glomerular Filtration Rate 110 ML/MIN Total Creatine Kinase 30 U/L Troponin I LESS THAN 0.02 NG/ML [facility] Medical Record Reviewed: Yes Supervised Visit with POONAM: Yes Narrative Course I, Dr. Canchola, have reviewed the advance practice practitioner's documentation and am in agreement, met with the patient face to face, made the diagnosis, and the medical decision making was done by me. *My assessment and Findings: Pt with TBI and trach reversal one week ago with coughing spell frightening to family. Pt in no acute distress here. Work up is essentially unremarkable. Family and patient reassured. OK for discharge home. Condition: Stable Cristobal Canchola MD July 03, 2017 13:06
--- NOTE | 2017-07-03 13:10 | PD ---
HPI Chief Complaint: Respiratory Symptoms Time Seen by Provider: 11:34 Travel History International Travel<30 days: No Contact w/Intl Traveler<30days: No Traveled to known affect area: No History of Present Illness HPI 46-year-old male with history of traumatic brain injury March 25, 2017, recently released from proximal rehab June 23, 2017 with trachea reversal 1 week ago, presents emergency department for evaluation of what his daughter believes his chest pain. The patient is slow to respond and does not answer my questions completely. He does answer no when asked if he is in pain. The daughter tells me that since the patient being home 1 week he has been eating solid foods when prior he was eating pured. Since yesterday he has developed a cough that has worsened throughout the night and he seems to having more difficult time breathing. She tells me that he was clenching his chest this morning while he was coughing and she is concerned that he may have been having chest pain. She tells me right now he seems at his baseline and without distress, but she still wanted him to "get checked out." PFS Past Medical History Arthritis: No Asthma: No Autoimmune Disease: No Anxiety: No Depression: No Heart Rhythm Problems: No Cancer: No Cardiovascular Problems: Yes High Cholesterol: Yes Chemotherapy: No Chest Pain: No Congestive Heart Failure: No COPD: No Cerebrovascular Accident: No Coronary Artery Disease: Yes Diabetes: Yes Patient Takes Glucophage: No Endocrine: Yes GERD: No Genitourinary: No Hiatal Hernia: No Hypertension: Yes Immune Disorder: No Kidney Stones: No Musculoskeletal: No Neurologic: Yes (TBI) Psychiatric: No Reproductive: No Respiratory: No Migraines: No Radiation Therapy: No Renal Failure: No Seizures: No Sickle Cell Disease: No Sleep Apnea: No Thyroid Disease: No Ulcer: No Tetanus Vaccination: Unknown Influenza Vaccination: Yes Past Surgical History Abdominal Surgery: No AICD: No Arteriovenous Shunt: No Cardiac Surgery: No Ear Surgery: No Endocrine Surgery: No Eye Surgery: No Genitourinary Surgery: No Gynecologic Surgery: No Insulin Pump: No Joint Replacement: No Oral Surgery: No Pacemaker: No Thoracic Surgery: No Other Surgery: Yes (femoral bypap) Social History Alcohol Use: No Tobacco Use: No Substance Use: No Allergies-Medications (Allergen,Severity, Reaction): Coded Allergies: No Known Allergies (Unverified , 5/7/18) Reported Meds & Prescriptions Reported Meds & Active Scripts Active Pantoprazole (Pantoprazole Sodium) 40 Mg Tab 40 Mg PO DAILY [Amantadine] 100 MG Cap 200 Mg PO DAILY Metoprolol Tartrate 50 Mg Tab 50 Mg PO BID Diltiazem (Diltiazem HCl) 30 Mg Tab 30 Mg PO Q6HR Hospital Bed - Electric 1 Ea Ea Ea .XX DIRECTED Commode 3-in-1 (Device) 1 Mis Mis Ea .XX DIRECTED Wheelchair (Device) 1 Mis Mis Ea .XX DIRECTED Reported Humulin 70-30 Inj (Insulin NPH Isophane-Reg (Human) 70-30 Inj) 1,000 Unit/10 Ml Vial 12 SQ BIDAC Baclofen 10 Mg Tab 10 Mg PO Q8HR Review of Systems Except as stated in HPI: all other systems reviewed are Neg Physical Exam Narrative GENERAL: Well-nourished male patient, sitting up in bed, in no acute distress. SKIN: Focused skin assessment warm/dry. Healed trachea site in the anterior neck. HEAD: Atraumatic. Normocephalic. EYES: Pupils equal and round. No scleral icterus. No injection or drainage. ENT: No nasal bleeding or discharge. Mucous membranes pink and moist. NECK: Trachea midline. No JVD. CARDIOVASCULAR: Regular rate and rhythm. No murmur appreciated. RESPIRATORY: No accessory muscle use. Clear to auscultation. Breath sounds equal bilaterally. GASTROINTESTINAL: Abdomen soft, non-tender, nondistended. Hepatic and splenic margins not palpable. MUSCULOSKELETAL: No obvious deformities. No clubbing. No cyanosis. No edema. NEUROLOGICAL: Awake and alert. Patient does move his extremities but slowly and with gross movement. He has clear speech but limited answers. PSYCHIATRIC: Flat affect Data Data Last Documented VS Vital Signs Date Time Temp Pulse Resp B/P (MAP) Pulse Ox O2 Delivery O2 Flow Rate FiO2 07/03/17 13:24 76 19 123/82 (96) 99 07/03/17 12:22 Room Air 07/03/17 11:06 96.8 Orders Orders Complete Blood Count With Diff (07/03/17 11:34) Basic Metabolic Panel (Bmp) (07/03/17 11:34) Act Partial Throm Time (Ptt) (07/03/17 11:34) Prothrombin Time / Inr (Pt) (07/03/17 11:34) Ckmb (Isoenzyme) Profile (07/03/17 11:34) Troponin I (07/03/17 11:34) Iv Access Insert/Monitor (07/03/17 11:34) Electrocardiogram (07/03/17 11:34) Ecg Monitoring (07/03/17 11:34) Oximetry (07/03/17 11:34) Oxygen Administration (07/03/17 11:34) Chest, Pa & Lat (07/03/17 11:34) Sodium Chloride 0.9% Flush (Ns Flush) (07/03/17 11:45) Sodium Chlor 0.9% 1000 Ml Inj (Ns 1000 M (07/03/17 11:45) Ed Discharge Order (07/03/17 13:00) Labs Laboratory Tests Test 07/03/17 12:05 White Blood Count 4.9 TH/MM3 Red Blood Count 3.86 MIL/MM3 Hemoglobin 11.8 GM/DL Hematocrit 35.2 % Mean Corpuscular Volume 91.2 FL Mean Corpuscular Hemoglobin 30.5 PG Mean Corpuscular Hemoglobin Concent 33.5 % Red Cell Distribution Width 16.2 % Platelet Count 234 TH/MM3 Mean Platelet Volume 7.8 FL Neutrophils (%) (Auto) 66.6 % Lymphocytes (%) (Auto) 21.5 % Monocytes (%) (Auto) 9.4 % Eosinophils (%) (Auto) 2.1 % Basophils (%) (Auto) 0.4 % Neutrophils # (Auto) 3.3 TH/MM3 Lymphocytes # (Auto) 1.1 TH/MM3 Monocytes # (Auto) 0.5 TH/MM3 Eosinophils # (Auto) 0.1 TH/MM3 Basophils # (Auto) 0.0 TH/MM3 CBC Comment DIFF FINAL Differential Comment Prothrombin Time 10.6 SEC Prothromb Time International Ratio 1.0 RATIO Activated Partial Thromboplast Time 26.4 SEC Blood Urea Nitrogen 5 MG/DL Creatinine 0.76 MG/DL Random Glucose 160 MG/DL Calcium Level 8.9 MG/DL Sodium Level 140 MEQ/L Potassium Level 3.7 MEQ/L Chloride Level 105 MEQ/L Carbon Dioxide Level 26.8 MEQ/L Anion Gap 8 MEQ/L Estimat Glomerular Filtration Rate 110 ML/MIN Total Creatine Kinase 30 U/L Troponin I LESS THAN 0.02 NG/ML MDM Medical Decision Making Medical Screen Exam Complete: Yes Emergency Medical Condition: Yes Medical Record Reviewed: Yes Differential Diagnosis Pneumonia versus bronchospasm versus increased secretions versus ACS Narrative Course 46-year-old male presents emergency department for evaluation. Patient appears without distress. He is currently not having any symptoms. His daughter was concerned because he grabbed his chest while coughing this morning. He has been coughing more in the last 24 hours. Patient did have his trach reversed 1 week ago. He has been eating solids for a week as well . Laboratory Tests Test 07/03/17 12:05 White Blood Count 4.9 TH/MM3 Red Blood Count 3.86 MIL/MM3 Hemoglobin 11.8 GM/DL Hematocrit 35.2 % Mean Corpuscular Volume 91.2 FL Mean Corpuscular Hemoglobin 30.5 PG Mean Corpuscular Hemoglobin Concent 33.5 % Red Cell Distribution Width 16.2 % Platelet Count 234 TH/MM3 Mean Platelet Volume 7.8 FL Neutrophils (%) (Auto) 66.6 % Lymphocytes (%) (Auto) 21.5 % Monocytes (%) (Auto) 9.4 % Eosinophils (%) (Auto) 2.1 % Basophils (%) (Auto) 0.4 % Neutrophils # (Auto) 3.3 TH/MM3 Lymphocytes # (Auto) 1.1 TH/MM3 Monocytes # (Auto) 0.5 TH/MM3 Eosinophils # (Auto) 0.1 TH/MM3 Basophils # (Auto) 0.0 TH/MM3 CBC Comment DIFF FINAL Differential Comment Prothrombin Time 10.6 SEC Prothromb Time International Ratio 1.0 RATIO Activated Partial Thromboplast Time 26.4 SEC Blood Urea Nitrogen 5 MG/DL Creatinine 0.76 MG/DL Random Glucose 160 MG/DL Calcium Level 8.9 MG/DL Sodium Level 140 MEQ/L Potassium Level 3.7 MEQ/L Chloride Level 105 MEQ/L Carbon Dioxide Level 26.8 MEQ/L Anion Gap 8 MEQ/L Estimat Glomerular Filtration Rate 110 ML/MIN Total Creatine Kinase 30 U/L Troponin I LESS THAN 0.02 NG/ML Last Impressions Chest X-Ray 07/03/17 1134 Signed Impressions: Service Date/Time: Monday, July 03, 2017 11:55 - CONCLUSION: Normal examination for a patient of this age. Joon Rosado MD Lab work is without acute concern. EKGs reviewed by my attending with no ectopy noted. Chest x-ray is normal for patient of this age. Findings are discussed with my attending who is also reviewed them and evaluated the patient. They are then discussed with the family. Patient will be discharged home to follow-up the primary care provider. He agrees to return immediately with any acute worsening symptoms. Diagnosis Primary Impression: Coughing Additional Impression: Painful cough Referrals: Primary Care Physician Patient Instructions: General Instructions, Acute Cough (ED) Departure Forms: Tests/Procedures Additional Instructions: Follow-up with a primary care provider Continue all medication as already prescribed Return immediately with acute worsening symptoms Disposition: 01 DISCHARGE HOME Condition: Stable [place] holley HENRY July 03, 2017 13:10
[2017-07-03 13:24] VITALS: BP 123/82
--- NOTE | 2017-07-04 14:16 | EKG ---
Date Performed: 07/03/2017 Time Performed: 12:18:03 PTAGE: 46 years EKG: Sinus rhythm NONSPECIFIC T-WAVE ABNORMALITY BORDERLINE ECG PREVIOUS TRACING : 03/25/2017 08.50 DOCTOR: Tano Nix Interpretating Date/Time 07/04/2017 14:14:38
== END 2017-07-03 13:28 | disposition home or self-care (01) ==
LOC: NEPC 10:59
DX: R05 Cough (principal); R94.31 Abnormal electrocardiogram [ECG] [EKG]; E78.00 Pure hypercholesterolemia, unspecified; I25.10 Atherosclerotic heart disease of native coronary artery without angina pectoris; E11.9 Type 2 diabetes mellitus without complications; I10 Essential (primary) hypertension; R07.9 Chest pain, unspecified; Z79.4 Long term (current) use of insulin; Z87.820 Personal history of traumatic brain injury
CPT/HCPCS: 71046; 80048; 82550; 84484; 85025; 85610; 85730; 93005; 99285; J7030